=== PATIENT | male | born 1945 | race Caucasian/White ===

== ENCOUNTER 2024-04-06 17:42 | Inpatient (IN) | payer MEDICARE, MEDICAID ==
[~2024-04-06] VITALS: Ht 165.1 cm; Wt 55.3 kg
[~2024-04-06 17:42] MED LIST: OLME40TA18 MT
[2024-04-06] MEDS: ACETAMINOPHEN 1000MG/100ML 100 ML IV ONE (18:00)
[2024-04-06] MEDS: FAMOTIDINE 20MG/2ML VIAL IV ONE (18:31)
[2024-04-06] MEDS: ONDANSETRON HCL 4MG/2ML INJ IV STA (18:31)
[2024-04-06 18:42] LABS: BASOPHILS % 0.8 % (0.0-2.0); EOSINOPHILS % 1.6 % (0.0-5.0); HEMATOCRIT. 30.1 % (42.0-52.0); HEMOGLOBIN. 10.1 g/dL (14.0-18.0); LYMPHOCYTES % 8.8 % (20.0-50.0); MEAN CORPUSCULAR HEMOGLOBIN 33.5 pg (28.0-32.0); MEAN CORPUSCULAR HGB CONC 33.6 g/dL (31.0-37.0); MEAN CORPUSCULAR VOLUME 99.6 fL (80.0-94.0); MEAN PLATELET VOLUME 7.2 fl (7.4-10.4); NEUTROPHILS % 77.8 % (40.0-76.0); PLATELET 170 x1000/uL (130-400); RED BLOOD CELL COUNT 3.02 mill/uL (4.7-6.1); RED CELL DISTRIBUTION WIDTH 15.9 % (11.6-14.6); WHITE BLOOD COUNT 5.9 x1000/uL (4.5-11.0)
[2024-04-06 18:50] LABS: CHLORIDE 95 mEq/L (98-107); SODIUM 135 mEq/L (136-145)
[2024-04-06 18:51] LABS: CALCIUM 8.1 mg/dL (8.7-10.4); CARBON DIOXIDE 29 mEq/L (21-32)
[2024-04-06 18:56] LABS: GLUCOSE 119 mg/dL (70-105); PROTHROMBIN TIME 10.9 sec (9.6-11.0); UREA NITROGEN BLOOD 45 mg/dL (9-23)
[2024-04-06 18:58] LABS: ALANINE AMINOTRANSFERASE 15 IU/L (10-49); ALBUMIN 3.8 g/dL (3.2-4.8); ASPARTATE AMINOTRANSFERASE 26 IU/L (<34); BILIRUBIN DIRECT 0.1 mg/dL (<=3.0); BILIRUBIN TOTAL 0.3 mg/dL (0.1-1.0); PROTEIN TOTAL 6.8 g/dL (6.0-8.3); TROPONIN I HIGH SENSITIVITY 18 ng/L (3.0-53)
[2024-04-06 20:00] LABS: CREATININE 10.2 mg/dL (0.6-1.3)
[2024-04-06] MEDS ORDERED: IPRATROPIUM/ALBUTEROL 0.5-3(2.5)MG/3ML NEB HHN PRN (20:30)
[2024-04-06] MEDS ORDERED: SODIUM CHLORIDE 0.9% 1,000 ML IV SCH (20:30)
[2024-04-06] MEDS ORDERED: DOCUSATE SODIUM 100MG CAPSULE PO PRN (20:30)
[2024-04-06] MEDS ORDERED: GUAIFENESIN 200MG/10ML SUGAR FREE UDC PO PRN (20:30)
[2024-04-06] MEDS ORDERED: FAMOTIDINE 20MG TABLET PO SCH (21:00)
[2024-04-06] MEDS: MORPHINE SULFATE 4 MG/ML INJ (FOR IV/IM USE) IV NR (21:15)
[2024-04-06 21:48] LABS: FOLIC ACID (FOLATE) SERUM 9.88 ng/mL (>5.38); IRON 24 ug/dL (65-175); VITAMIN B12 SERUM 286 pg/mL (211-911)
[2024-04-06 21:51] LABS: TOTAL IRON BINDING CAPACITY 270 ug/dl (250-425)
[2024-04-07] VITALS (13 sets, daily range): BP systolic 101–143; BP diastolic 46–80; PULSE 68–108; RESP 14–20; TEMP 36.418–38.22528; O2SAT 94–100
[2024-04-07 01:57] LABS: CLARITY URINE CLEAR (CLEAR); COLOR URINE YELLOW (YELLOW); GLUCOSE URINE TRACE (NEGATIVE); KETONES URINE NEGATIVE (NEGATIVE); LEUKOCYTE ESTERASE URINE TRACE (NEGATIVE); NITRITE URINE NEGATIVE (NEGATIVE); OCCULT BLOOD URINE TRACE (NEGATIVE); PH URINE >=9.0 (4.5-8.0); PROTEIN URINE 2+ (NEGATIVE); SPECIFIC GRAVITY URINE 1.012 (1.005-1.030); UROBILINOGEN URINE 0.2 E.U./dL (0.2-1.0)
[2024-04-07] MEDS: ACETAMINOPHEN 325MG TABLET PO PRN ×2 (02:32→21:11)
[2024-04-07 02:39] LABS: *AMPHETAMINES SCREEN URINE NEGATIVE (NEGATIVE); *BARBITURATES SCREEN URINE NEGATIVE (NEGATIVE); *BENZODIAZEPINES SCREEN URINE NEGATIVE (NEGATIVE)
[2024-04-07 02:40] LABS: *COCAINE SCREEN URINE NEGATIVE (NEGATIVE); CANNABINOID URINE SCREEN NEGATIVE (NEGATIVE); ECSTASY MDMA SCREEN URINE NEGATIVE (NEGATIVE); METHADONE URINE SCREEN NEGATIVE (NEGATIVE); OPIATES URINE SCREEN NEGATIVE (NEGATIVE); PHENCYCLIDINE URINE SCREEN NEGATIVE (NEGATIVE)
[2024-04-07 03:25] LABS: SQUAMOUS EPITHELIAL CELL URINE FEW /lpf (RARE/1+)
[2024-04-07 03:26] LABS: BACTERIA URINE NONE SEEN
[2024-04-07 04:06] LABS: POTASSIUM 5.9 mEq/L (3.5-5.1)
[2024-04-07 04:08] LABS: CALCIUM 8.1 mg/dL (8.7-10.4)
[2024-04-07 04:14] LABS: CREATININE 10.4 mg/dL (0.6-1.3)
[2024-04-07] MEDS: PANTOPRAZOLE SODIUM 40 MG/VIAL IV SCH (08:44)
[2024-04-07 11:37] LABS: HEMATOCRIT. 30.9 % (42.0-52.0); HEMOGLOBIN. 10.2 g/dL (14.0-18.0); MEAN CORPUSCULAR HEMOGLOBIN 32.8 pg (28.0-32.0); MEAN CORPUSCULAR HGB CONC 33.1 g/dL (31.0-37.0); MEAN CORPUSCULAR VOLUME 99.2 fL (80.0-94.0); MEAN PLATELET VOLUME 7.1 fl (7.4-10.4); PLATELET 154 x1000/uL (130-400); RED BLOOD CELL COUNT 3.11 mill/uL (4.7-6.1); RED CELL DISTRIBUTION WIDTH 15.7 % (11.6-14.6); WHITE BLOOD COUNT 7.5 x1000/uL (4.5-11.0)
[2024-04-07 11:39] LABS: DIFFERENTIAL COMMENT 1
[2024-04-07 11:52] LABS: CALCIUM 8.2 mg/dL (8.7-10.4)
[2024-04-07 11:57] LABS: POTASSIUM 6.3 mEq/L (3.5-5.1)
[2024-04-07 11:59] LABS: ALBUMIN 3.7 g/dL (3.2-4.8)
[2024-04-07 12:00] LABS: CREATININE 11.1 mg/dL (0.6-1.3)
[2024-04-07 12:01] LABS: T4 FREE 0.88 ng/dL (0.89-1.76); THYROID STIMULATING HORMONE 0.27 uIU/mL (0.55-4.78)
[2024-04-07] MEDS: CYANOCOBALAMIN 1000MCG/ML VIAL IM SCH (15:23)
[2024-04-07] MEDS: BACLOFEN 10MG TABLET PO SCH (15:24)
[2024-04-07] MEDS: CEFTRIAXONE 1GM/50ML 50 ML IV SCH (17:29)
[2024-04-07] MEDS: ENOXAPARIN 30MG/0.3ML SYR SUBCUT SCH (17:30)
[2024-04-07 18:05] LABS: PLATELET ESTIMATE NORMAL
[2024-04-07] MEDS: METRONIDAZOLE 500 MG PREMIX 100 ML IV SCH (18:24)
[2024-04-07 18:35] LABS: POTASSIUM 4.9 mEq/L (3.5-5.1)
[2024-04-07 18:37] LABS: CALCIUM 7.9 mg/dL (8.7-10.4)
[2024-04-07 18:48] LABS: CREATININE 8.4 mg/dL (0.6-1.3)
[2024-04-08] VITALS (13 sets, daily range): BP systolic 90–177; BP diastolic 44–81; PULSE 72–87; RESP 16–19; TEMP 36.6696–37.39188; O2SAT 97–100
[2024-04-08] MEDS ORDERED: HYDROCODONE/ACETAMINOPHEN 5/325MG TABLET PO PRN (02:30)
[2024-04-08] MEDS: HYDROCODONE/ACETAMINOPHEN 5/325MG TABLET PO PRN ×2 (02:45→17:34)
[2024-04-08 07:44] LABS: HEMATOCRIT. 29.3 % (42.0-52.0); HEMOGLOBIN. 9.7 g/dL (14.0-18.0); MEAN CORPUSCULAR HEMOGLOBIN 32.7 pg (28.0-32.0); MEAN CORPUSCULAR HGB CONC 33.2 g/dL (31.0-37.0); MEAN CORPUSCULAR VOLUME 98.3 fL (80.0-94.0); MEAN PLATELET VOLUME 7.8 fl (7.4-10.4); PLATELET 129 x1000/uL (130-400); RED BLOOD CELL COUNT 2.98 mill/uL (4.7-6.1); RED CELL DISTRIBUTION WIDTH 15.9 % (11.6-14.6); WHITE BLOOD COUNT 8.4 x1000/uL (4.5-11.0)
[2024-04-08 07:47] LABS: CHLORIDE 93 mEq/L (98-107); POTASSIUM 5.2 mEq/L (3.5-5.1); SODIUM 130 mEq/L (136-145)
[2024-04-08 07:48] LABS: CARBON DIOXIDE 26 mEq/L (21-32)
[2024-04-08 07:49] LABS: CALCIUM 7.8 mg/dL (8.7-10.4)
[2024-04-08 07:50] LABS: DIFFERENTIAL COMMENT 1
[2024-04-08 07:53] LABS: GLUCOSE 82 mg/dL (70-105)
[2024-04-08 07:54] LABS: UREA NITROGEN BLOOD 47 mg/dL (9-23)
[2024-04-08 07:55] LABS: ALANINE AMINOTRANSFERASE 17 IU/L (10-49); ASPARTATE AMINOTRANSFERASE 66 IU/L (<34)
[2024-04-08 07:56] LABS: ALBUMIN 3.4 g/dL (3.2-4.8); BILIRUBIN TOTAL 0.5 mg/dL (0.1-1.0); PROTEIN TOTAL 6.2 g/dL (6.0-8.3)
[2024-04-08 08:04] LABS: CREATININE 9.8 mg/dL (0.6-1.3)
[2024-04-08] MEDS: METHADONE HCL 5MG TABLET PO PRN (09:55)
[2024-04-08 13:09] LABS: CALCIUM 8.2 mg/dL (8.7-10.4); POTASSIUM 4.3 mEq/L (3.5-5.1)
[2024-04-08 13:26] LABS: CREATININE 5.8 mg/dL (0.6-1.3)
[2024-04-08] MEDS ORDERED: NALOXONE HCL 0.4MG/ML VIAL IV PRN (17:15)
[2024-04-08 17:31] LABS: PLATELET ESTIMATE NORMAL
[2024-04-09] VITALS: BP 116/56; PULSE 74; RESP 18; TEMP 36.3918; O2SAT 97
[2024-04-09 06:26] LABS: POTASSIUM 4.8 mEq/L (3.5-5.1)
[2024-04-09 06:27] LABS: CALCIUM 8.5 mg/dL (8.7-10.4)
[2024-04-09 06:29] LABS: HEMATOCRIT 28.2 % (42.0-52.0); HEMOGLOBIN 9.1 g/dL (14.0-18.0); MEAN CORPUSCULAR HEMOGLOBIN 32.5 pg (28.0-32.0); MEAN CORPUSCULAR HGB CONC 32.4 g/dL (31.0-37.0); MEAN CORPUSCULAR VOLUME 100.4 fL (80.0-94.0); PLATELET 119 x1000/uL (130-400); RED BLOOD CELL COUNT 2.81 mill/uL (4.7-6.1); RED CELL DISTRIBUTION WIDTH 16.2 % (11.6-14.6); WHITE BLOOD COUNT 5.5 x1000/uL (4.5-11.0)
[2024-04-09 06:38] LABS: CREATININE 7.3 mg/dL (0.6-1.3)
[2024-04-09 08:00] VITALS: BP 167/75; PULSE 69; RESP 18; TEMP 36.16956; O2SAT 97
[2024-04-09] MEDS: CLONIDINE 0.1MG TABLET PO PRN (09:44)
[2024-04-09 12:00] VITALS: BP 105/53; PULSE 58; RESP 18; TEMP 36.33624; O2SAT 97
[2024-04-09] MEDS ORDERED: CEFEPIME 1GM IN DEXT 5% 50ML IV SCH (13:45)
[2024-04-09 16:00] VITALS: BP 142/61; PULSE 88; RESP 18; TEMP 36.50292; O2SAT 100
[2024-04-09] MEDS: CEFEPIME 1GM/50ML 50 ML IV SCH (17:08)
[2024-04-09] MEDS: AMLODIPINE 10MG TABLET PO SCH (17:09)
[2024-04-09] MEDS: SODIUM CHLORIDE 0.45% 1,000 ML IV SCH (17:25)
[2024-04-09] MEDS: METRONIDAZOLE 500MG TABLET PO SCH (18:00)
[2024-04-09 20:00] VITALS: BP 106/64; PULSE 63; RESP 18; TEMP 36.00288; O2SAT 100
[2024-04-09 22:16] LABS: HEMATOCRIT. 30.8 % (42.0-52.0); HEMOGLOBIN. 10.2 g/dL (14.0-18.0); MEAN CORPUSCULAR HEMOGLOBIN 32.9 pg (28.0-32.0); MEAN CORPUSCULAR VOLUME 99.6 fL (80.0-94.0); MEAN PLATELET VOLUME 8.4 fl (7.4-10.4); PLATELET 131 x1000/uL (130-400); RED BLOOD CELL COUNT 3.09 mill/uL (4.7-6.1); RED CELL DISTRIBUTION WIDTH 16.2 % (11.6-14.6); WHITE BLOOD COUNT 5.4 x1000/uL (4.5-11.0)
[2024-04-09 22:18] LABS: DIFFERENTIAL COMMENT 1
[2024-04-09 22:24] LABS: POTASSIUM 4.8 mEq/L (3.5-5.1)
[2024-04-09 22:25] LABS: CALCIUM 8.6 mg/dL (8.7-10.4)
[2024-04-09 22:32] LABS: AMMONIA < 17 uMol/L (<32)
[2024-04-09 22:37] LABS: PLATELET ESTIMATE NORMAL
[2024-04-09 22:41] LABS: CREATININE 8.8 mg/dL (0.6-1.3)
[2024-04-10] VITALS (14 sets, daily range): BP systolic 135–190; BP diastolic 71–96; PULSE 63–105; RESP 16–19; TEMP 36.114–36.78072; O2SAT 97–100
[2024-04-10] MEDS: DEXT 5%/0.45% NACL 1000ML 1,000 ML IV SCH ×2 (02:34→08:59)
[2024-04-10 07:41] LABS: CARBON DIOXIDE 23 mEq/L (21-32); CHLORIDE 106 mEq/L (98-107); POTASSIUM 5.2 mEq/L (3.5-5.1); SODIUM 141 mEq/L (136-145)
[2024-04-10 07:42] LABS: CALCIUM 8.9 mg/dL (8.7-10.4)
[2024-04-10 07:47] LABS: ALANINE AMINOTRANSFERASE 15 IU/L (10-49); ASPARTATE AMINOTRANSFERASE 53 IU/L (<34); GLUCOSE 75 mg/dL (70-105); HEMOGLOBIN 10.7 g/dL (14.0-18.0); MEAN CORPUSCULAR HEMOGLOBIN 32.8 pg (28.0-32.0); MEAN CORPUSCULAR HGB CONC 32.3 g/dL (31.0-37.0); MEAN CORPUSCULAR VOLUME 101.4 fL (80.0-94.0); PLATELET 140 x1000/uL (130-400); RED BLOOD CELL COUNT 3.26 mill/uL (4.7-6.1); RED CELL DISTRIBUTION WIDTH 16.5 % (11.6-14.6); UREA NITROGEN BLOOD 56 mg/dL (9-23); WHITE BLOOD COUNT 6.5 x1000/uL (4.5-11.0)
[2024-04-10 07:49] LABS: ALBUMIN 3.5 g/dL (3.2-4.8); BILIRUBIN DIRECT 0.2 mg/dL (<=3.0); BILIRUBIN TOTAL 0.3 mg/dL (0.1-1.0); PHOSPHORUS 6.4 mg/dL (2.5-4.9); PROTEIN TOTAL 6.7 g/dL (6.0-8.3)
[2024-04-10] MEDS: METRONIDAZOLE 500 MG PREMIX 100 ML IV SCH ×2 (09:58→17:32)
[2024-04-10] MEDS ORDERED: EPOETIN ALFA-EPBX 4,000 UNIT/ML VIAL SUBCUT SCH (21:00)
[2024-04-11 08:00] VITALS: BP 197/79; PULSE 85; RESP 20; TEMP 36.05844; O2SAT 98
[2024-04-11 09:00] VITALS: BP 167/89; PULSE 80
[2024-04-11] MEDS: FOLIC ACID/VITAMIN B COMP W-C TABLET NG SCH (09:00)
[2024-04-11 12:00] VITALS: BP 191/61; PULSE 77; RESP 19; TEMP 36.00288; O2SAT 97
[2024-04-11 13:14] VITALS: BP 157/68; PULSE 83; RESP 20; TEMP 36.61404; O2SAT 95
[2024-04-11 16:00] VITALS: BP 145/52; RESP 18; TEMP 35.89176; O2SAT 97
[2024-04-11 17:00] LABS: HEMATOCRIT 28.1 % (42.0-52.0); HEMOGLOBIN 9.1 g/dL (14.0-18.0); MEAN CORPUSCULAR HEMOGLOBIN 32.7 pg (28.0-32.0); MEAN CORPUSCULAR HGB CONC 32.2 g/dL (31.0-37.0); MEAN CORPUSCULAR VOLUME 101.3 fL (80.0-94.0); PLATELET 153 x1000/uL (130-400); RED BLOOD CELL COUNT 2.78 mill/uL (4.7-6.1); RED CELL DISTRIBUTION WIDTH 16.4 % (11.6-14.6); WHITE BLOOD COUNT 6.4 x1000/uL (4.5-11.0)
[2024-04-11 17:14] LABS: POTASSIUM 4.4 mEq/L (3.5-5.1)
[2024-04-11 17:15] LABS: CALCIUM 8.3 mg/dL (8.7-10.4)
[2024-04-11 17:21] LABS: CREATININE 8.8 mg/dL (0.6-1.3)
[2024-04-11] MEDS ORDERED: HYDROXYZINE 10MG TABLET PO PRN (18:45)
[2024-04-11 21:38] VITALS: BP 136/78; PULSE 72; RESP 20; TEMP 37.05852; O2SAT 90
[2024-04-12 00:44] VITALS: BP 136/70; PULSE 78; RESP 20; TEMP 37.05852; O2SAT 98
[2024-04-12 06:29] VITALS: BP 136/92; PULSE 70; RESP 18; TEMP 37.00296; O2SAT 94
[2024-04-12 08:00] VITALS: BP 147/71; PULSE 81; RESP 18; TEMP 36.33624; O2SAT 96
[2024-04-12 11:20] LABS: POTASSIUM 4.5 mEq/L (3.5-5.1)
[2024-04-12 11:21] LABS: CALCIUM 8.6 mg/dL (8.7-10.4)
[2024-04-12 11:27] LABS: AMMONIA 17 uMol/L (<32)
[2024-04-12 11:28] LABS: HEMATOCRIT 27.6 % (42.0-52.0); HEMOGLOBIN 9.1 g/dL (14.0-18.0); MEAN CORPUSCULAR HEMOGLOBIN 32.7 pg (28.0-32.0); MEAN CORPUSCULAR HGB CONC 32.9 g/dL (31.0-37.0); MEAN CORPUSCULAR VOLUME 99.1 fL (80.0-94.0); PLATELET 169 x1000/uL (130-400); RED BLOOD CELL COUNT 2.78 mill/uL (4.7-6.1); RED CELL DISTRIBUTION WIDTH 16.3 % (11.6-14.6); WHITE BLOOD COUNT 7.4 x1000/uL (4.5-11.0)
[2024-04-12 12:00] VITALS: BP 125/68; PULSE 79; RESP 18; TEMP 36.89184; O2SAT 95
[2024-04-12 12:01] LABS: CREATININE 10.1 mg/dL (0.6-1.3)
[2024-04-12 16:00] VITALS: BP 119/59; PULSE 68; RESP 18; TEMP 36.55848; O2SAT 97
[2024-04-12] MEDS: LORAZEPAM 2MG/ML INJ IV NR (16:48)
[2024-04-12 20:00] VITALS: BP 144/78; PULSE 75; RESP 20; TEMP 36.22512; O2SAT 100
[2024-04-13] VITALS (9 sets, daily range): BP systolic 97–163; BP diastolic 48–87; PULSE 61–97; RESP 16–20; TEMP 36.3918–37.11408; O2SAT 95–100
[2024-04-13] MEDS ORDERED: EPOETIN ALFA 10000UNITS/ML VIAL SUBCUT ONE (07:15)
[2024-04-13] MEDS: ONDANSETRON HCL 4MG/2ML INJ IV PRN (12:48)
[2024-04-13 13:48] LABS: CHLORIDE 108 mEq/L (98-107); SODIUM 144 mEq/L (136-145)
[2024-04-13 13:49] LABS: CALCIUM 8.4 mg/dL (8.7-10.4); CARBON DIOXIDE 25 mEq/L (21-32)
[2024-04-13 13:54] LABS: GLUCOSE 126 mg/dL (70-105); UREA NITROGEN BLOOD 51 mg/dL (9-23)
[2024-04-13 13:55] LABS: INR 1.2
[2024-04-13 13:56] LABS: ALANINE AMINOTRANSFERASE 13 IU/L (10-49); ALBUMIN 3.5 g/dL (3.2-4.8); AMMONIA 17 uMol/L (<32); ASPARTATE AMINOTRANSFERASE 27 IU/L (<34); BILIRUBIN TOTAL 0.6 mg/dL (0.1-1.0); PROTEIN TOTAL 6.6 g/dL (6.0-8.3)
[2024-04-13 14:02] LABS: HEMATOCRIT. 27.1 % (42.0-52.0); HEMOGLOBIN. 8.9 g/dL (14.0-18.0); MEAN CORPUSCULAR HEMOGLOBIN 32.3 pg (28.0-32.0); MEAN CORPUSCULAR HGB CONC 32.8 g/dL (31.0-37.0); MEAN CORPUSCULAR VOLUME 98.5 fL (80.0-94.0); MEAN PLATELET VOLUME 8.4 fl (7.4-10.4); PLATELET 171 x1000/uL (130-400); RED BLOOD CELL COUNT 2.75 mill/uL (4.7-6.1); RED CELL DISTRIBUTION WIDTH 16.7 % (11.6-14.6); WHITE BLOOD COUNT 9.5 x1000/uL (4.5-11.0)
[2024-04-13 14:04] LABS: DIFFERENTIAL COMMENT 1
[2024-04-13] MEDS: QUETIAPINE FUMARATE 25MG TABLET PO SCH (14:34)
[2024-04-13 14:39] LABS: CREATININE 8.9 mg/dL (0.6-1.3)
[2024-04-13 14:56] LABS: ANISOCYTOSIS 1+; PLATELET ESTIMATE NORMAL
[2024-04-13] MEDS: EPOETIN ALFA-EPBX 4,000 UNIT/ML VIAL SUBCUT SCH (22:18)
[2024-04-14 08:00] VITALS: BP 151/67; PULSE 96; RESP 18; TEMP 35.5584; O2SAT 98
[2024-04-14 08:55] LABS: HEMOGLOBIN. 9.3 g/dL (14.0-18.0); MEAN CORPUSCULAR HEMOGLOBIN 31.5 pg (28.0-32.0); MEAN CORPUSCULAR VOLUME 98.4 fL (80.0-94.0); MEAN PLATELET VOLUME 8.7 fl (7.4-10.4); PLATELET 172 x1000/uL (130-400); RED BLOOD CELL COUNT 2.94 mill/uL (4.7-6.1); RED CELL DISTRIBUTION WIDTH 16.6 % (11.6-14.6); WHITE BLOOD COUNT 8.4 x1000/uL (4.5-11.0)
[2024-04-14 09:01] LABS: DIFFERENTIAL COMMENT 1
[2024-04-14 09:04] LABS: CHLORIDE 109 mEq/L (98-107); POTASSIUM 3.8 mEq/L (3.5-5.1); SODIUM 144 mEq/L (136-145)
[2024-04-14 09:05] LABS: CARBON DIOXIDE 24 mEq/L (21-32)
[2024-04-14 09:06] LABS: CALCIUM 8.7 mg/dL (8.7-10.4); INR 1.3
[2024-04-14 09:10] LABS: GLUCOSE 142 mg/dL (70-105); UREA NITROGEN BLOOD 61 mg/dL (9-23)
[2024-04-14 09:12] LABS: ALANINE AMINOTRANSFERASE 10 IU/L (10-49); ALBUMIN 3.3 g/dL (3.2-4.8); ASPARTATE AMINOTRANSFERASE 22 IU/L (<34)
[2024-04-14 09:13] LABS: BILIRUBIN TOTAL 0.4 mg/dL (0.1-1.0); PROTEIN TOTAL 6.5 g/dL (6.0-8.3)
[2024-04-14 09:17] LABS: CREATININE 10.2 mg/dL (0.6-1.3)
[2024-04-14 09:50] LABS: FOLIC ACID (FOLATE) SERUM 7.25 ng/mL (>5.38)
[2024-04-14 10:06] LABS: VITAMIN B12 SERUM > 2000 pg/mL (211-911)
[2024-04-14 10:32] LABS: AMMONIA 22 uMol/L (<32)
[2024-04-14 12:00] VITALS: BP 150/74; PULSE 98; RESP 18; TEMP 36.114; O2SAT 98
[2024-04-14 16:00] VITALS: BP_SYST 108; BP_SYST 143; BP_DIAS 64; PULSE 98; RESP 18; TEMP 36.16956; TEMP 36.44736; O2SAT 99
[2024-04-14] MEDS: MORPHINE SULFATE 2 MG/ML INJ (NOT FOR IM USE) IV PRN (17:49)
[2024-04-14 20:00] VITALS: BP 154/78; PULSE 97; RESP 20; TEMP 37.11408; O2SAT 97
[2024-04-15] VITALS: BP 140/87; PULSE 98; RESP 18; TEMP 36.22512; O2SAT 97
[2024-04-15 01:29] LABS: ANISOCYTOSIS 1+; PLATELET ESTIMATE NORMAL
[2024-04-15 04:00] VITALS: BP 144/82; PULSE 75; RESP 19; TEMP 36.22512; O2SAT 98
[2024-04-15 06:40] LABS: HEMOGLOBIN. 8.9 g/dL (14.0-18.0); MEAN CORPUSCULAR HEMOGLOBIN 31.6 pg (28.0-32.0); MEAN CORPUSCULAR VOLUME 98.8 fL (80.0-94.0); MEAN PLATELET VOLUME 8.9 fl (7.4-10.4); PLATELET 172 x1000/uL (130-400); RED BLOOD CELL COUNT 2.83 mill/uL (4.7-6.1); RED CELL DISTRIBUTION WIDTH 16.8 % (11.6-14.6); WHITE BLOOD COUNT 9.5 x1000/uL (4.5-11.0)
[2024-04-15 06:49] LABS: CARBON DIOXIDE 23 mEq/L (21-32); CHLORIDE 108 mEq/L (98-107); POTASSIUM 3.8 mEq/L (3.5-5.1); SODIUM 144 mEq/L (136-145)
[2024-04-15 06:50] LABS: CALCIUM 8.4 mg/dL (8.7-10.4)
[2024-04-15 06:55] LABS: GLUCOSE 110 mg/dL (70-105); UREA NITROGEN BLOOD 65 mg/dL (9-23)
[2024-04-15 06:56] LABS: ALANINE AMINOTRANSFERASE 8 IU/L (10-49); ALBUMIN 3.2 g/dL (3.2-4.8)
[2024-04-15 06:57] LABS: ASPARTATE AMINOTRANSFERASE 20 IU/L (<34); BILIRUBIN TOTAL 0.4 mg/dL (0.1-1.0); PROTEIN TOTAL 6.2 g/dL (6.0-8.3)
[2024-04-15 07:01] LABS: CREATININE 11.7 mg/dL (0.6-1.3)
[2024-04-15 07:04] LABS: DIFFERENTIAL COMMENT 1
[2024-04-15 08:00] VITALS: BP 165/79; PULSE 113; RESP 20; TEMP 37.33632; O2SAT 98
[2024-04-15] MEDS: HYDRALAZINE HCL 10MG TABLET PO SCH (09:16)
[2024-04-15 12:00] VITALS: BP 129/58; PULSE 72; RESP 18; TEMP 37.00296; O2SAT 96
[2024-04-15] MEDS: METOCLOPRAMIDE HCL 10MG/2ML VIAL IV SCH (12:00)
[2024-04-15] MEDS: LEVOTHYROXINE SODIUM 25MCG TABLET PO SCH (15:45)
[2024-04-15 16:00] VITALS: BP 142/69; PULSE 97; RESP 20; TEMP 37.00296; O2SAT 95
[2024-04-15 18:26] LABS: PLATELET ESTIMATE NORMAL
[2024-04-15 20:00] VITALS: BP 147/74; PULSE 94; RESP 19; TEMP 36.78072; O2SAT 95
[2024-04-15] MEDS: EPOETIN ALFA-EPBX 4,000 UNIT/ML VIAL SUBCUT SCH (21:00)
[2024-04-15] MEDS: METRONIDAZOLE 500 MG PREMIX 100 ML IV SCH (22:00)
[2024-04-15] MEDS: LORAZEPAM 2MG/ML INJ IV NR (22:53)
[2024-04-16] VITALS (15 sets, daily range): BP systolic 70–159; BP diastolic 35–74; PULSE 65–101; RESP 17–22; TEMP 35.78064–36.72516; O2SAT 98–100
[2024-04-16 06:53] LABS: CHLORIDE 108 mEq/L (98-107); POTASSIUM 4.4 mEq/L (3.5-5.1); SODIUM 143 mEq/L (136-145)
[2024-04-16 06:56] LABS: CARBON DIOXIDE 23 mEq/L (21-32)
[2024-04-16 07:01] LABS: GLUCOSE 117 mg/dL (70-105); UREA NITROGEN BLOOD 84 mg/dL (9-23)
[2024-04-16 07:02] LABS: ALANINE AMINOTRANSFERASE 8 IU/L (10-49)
[2024-04-16 07:03] LABS: ALBUMIN 3.4 g/dL (3.2-4.8); AMMONIA < 17 uMol/L (<32); ASPARTATE AMINOTRANSFERASE 21 IU/L (<34); BILIRUBIN DIRECT 0.2 mg/dL (<=3.0); THYROID STIMULATING HORMONE 0.77 uIU/mL (0.55-4.78)
[2024-04-16 07:04] LABS: BASOPHILS % 0.5 % (0.0-2.0); BILIRUBIN TOTAL 0.4 mg/dL (0.1-1.0); EOSINOPHILS % 1.8 % (0.0-5.0); HEMATOCRIT. 28.7 % (42.0-52.0); HEMOGLOBIN. 9.4 g/dL (14.0-18.0); MEAN CORPUSCULAR HEMOGLOBIN 32.3 pg (28.0-32.0); MEAN CORPUSCULAR HGB CONC 32.7 g/dL (31.0-37.0); MEAN CORPUSCULAR VOLUME 98.7 fL (80.0-94.0); MEAN PLATELET VOLUME 8.8 fl (7.4-10.4); MONOCYTES % 8.9 % (2.0-8.0); NEUTROPHILS % 78.8 % (40.0-76.0); PLATELET 178 x1000/uL (130-400); PROTEIN TOTAL 6.7 g/dL (6.0-8.3); RED BLOOD CELL COUNT 2.91 mill/uL (4.7-6.1); WHITE BLOOD COUNT 9.7 x1000/uL (4.5-11.0)
[2024-04-16 07:12] LABS: CREATININE 12.6 mg/dL (0.6-1.3)
[2024-04-16] MEDS ORDERED: CEFEPIME 1GM IN DEXT 5% 50ML IV SCH (17:00)
[2024-04-16] MEDS: CEFEPIME 1GM/50ML 50 ML IV SCH (17:01)
[2024-04-17] VITALS: BP 135/55; PULSE 99; RESP 20; TEMP 36.78072; O2SAT 96
[2024-04-17 04:00] VITALS: BP 140/59; PULSE 104; RESP 22; TEMP 36.6696; O2SAT 98
[2024-04-17 06:11] LABS: HEMATOCRIT. 28.8 % (42.0-52.0); HEMOGLOBIN. 9.4 g/dL (14.0-18.0); MEAN CORPUSCULAR HEMOGLOBIN 31.9 pg (28.0-32.0); MEAN CORPUSCULAR HGB CONC 32.7 g/dL (31.0-37.0); MEAN CORPUSCULAR VOLUME 97.7 fL (80.0-94.0); MEAN PLATELET VOLUME 8.9 fl (7.4-10.4); PLATELET 192 x1000/uL (130-400); RED BLOOD CELL COUNT 2.95 mill/uL (4.7-6.1); RED CELL DISTRIBUTION WIDTH 16.5 % (11.6-14.6); WHITE BLOOD COUNT 11.4 x1000/uL (4.5-11.0)
[2024-04-17 06:37] LABS: CHLORIDE 99 mEq/L (98-107); POTASSIUM 3.8 mEq/L (3.5-5.1); SODIUM 136 mEq/L (136-145)
[2024-04-17 06:38] LABS: CALCIUM 8.4 mg/dL (8.7-10.4); CARBON DIOXIDE 29 mEq/L (21-32)
[2024-04-17 06:43] LABS: GLUCOSE 111 mg/dL (70-105); UREA NITROGEN BLOOD 43 mg/dL (9-23)
[2024-04-17 06:44] LABS: ALANINE AMINOTRANSFERASE 11 IU/L (10-49); ALBUMIN 3.3 g/dL (3.2-4.8); ASPARTATE AMINOTRANSFERASE 29 IU/L (<34)
[2024-04-17 06:45] LABS: BILIRUBIN TOTAL 0.5 mg/dL (0.1-1.0); CREATININE 8.2 mg/dL (0.6-1.3)
[2024-04-17 06:46] LABS: PROTEIN TOTAL 6.6 g/dL (6.0-8.3)
[2024-04-17 08:00] VITALS: BP 110/71; PULSE 103; RESP 20; TEMP 36.55848; O2SAT 95
[2024-04-17 12:00] VITALS: BP 144/64; PULSE 106; RESP 20; TEMP 36.78072; O2SAT 95
[2024-04-17 16:00] VITALS: BP 139/73; PULSE 111; RESP 20; TEMP 36.72516; O2SAT 95
[2024-04-17 17:49] LABS: ANISOCYTOSIS 1+; PLATELET ESTIMATE NORMAL
[2024-04-17 20:00] VITALS: BP 95/56; PULSE 100; RESP 19; TEMP 36.6696; O2SAT 97
[2024-04-18] VITALS: BP 136/54; PULSE 86; RESP 19; TEMP 36.22512; O2SAT 98
[2024-04-18 04:00] VITALS: BP 147/60; PULSE 79; RESP 20; TEMP 36.50292; O2SAT 98
[2024-04-18 08:00] VITALS: BP 118/65; PULSE 72; RESP 18; TEMP 36.3918; O2SAT 100
[2024-04-18 08:08] LABS: POTASSIUM 3.6 mEq/L (3.5-5.1)
[2024-04-18 08:09] LABS: CALCIUM 8.5 mg/dL (8.7-10.4)
[2024-04-18 08:15] LABS: CREATININE 9.4 mg/dL (0.6-1.3)
[2024-04-18 08:17] LABS: BASOPHILS % 0.4 % (0.0-2.0); EOSINOPHILS % 1.8 % (0.0-5.0); HEMATOCRIT. 24.1 % (42.0-52.0); HEMOGLOBIN. 8.1 g/dL (14.0-18.0); LYMPHOCYTES % 7.3 % (20.0-50.0); MEAN CORPUSCULAR HEMOGLOBIN 32.7 pg (28.0-32.0); MEAN CORPUSCULAR HGB CONC 33.7 g/dL (31.0-37.0); MEAN CORPUSCULAR VOLUME 96.9 fL (80.0-94.0); MEAN PLATELET VOLUME 9.1 fl (7.4-10.4); MONOCYTES % 10.2 % (2.0-8.0); NEUTROPHILS % 80.3 % (40.0-76.0); PLATELET 151 x1000/uL (130-400); RED BLOOD CELL COUNT 2.49 mill/uL (4.7-6.1); RED CELL DISTRIBUTION WIDTH 16.4 % (11.6-14.6); WHITE BLOOD COUNT 9.1 x1000/uL (4.5-11.0)
[2024-04-18 12:00] VITALS: BP 110/57; PULSE 80; RESP 17; TEMP 36.72516; O2SAT 98
[2024-04-18 16:00] VITALS: BP 116/59; PULSE 86; RESP 17; TEMP 36.72516; O2SAT 98
[2024-04-18 20:00] VITALS: BP 135/67; PULSE 91; RESP 18; TEMP 37.00296; O2SAT 98
[2024-04-19] VITALS: BP 126/55; PULSE 79; RESP 18; TEMP 36.72516; O2SAT 97
[2024-04-19 04:00] VITALS: BP 118/58; PULSE 72; RESP 19; TEMP 36.22512
[2024-04-19 06:26] LABS: BASOPHILS % 0.7 % (0.0-2.0); EOSINOPHILS % 2.4 % (0.0-5.0); HEMATOCRIT. 24.8 % (42.0-52.0); HEMOGLOBIN. 8.3 g/dL (14.0-18.0); LYMPHOCYTES % 7.4 % (20.0-50.0); MEAN CORPUSCULAR HEMOGLOBIN 32.5 pg (28.0-32.0); MEAN CORPUSCULAR HGB CONC 33.6 g/dL (31.0-37.0); MEAN CORPUSCULAR VOLUME 96.9 fL (80.0-94.0); MEAN PLATELET VOLUME 8.7 fl (7.4-10.4); MONOCYTES % 9.8 % (2.0-8.0); NEUTROPHILS % 79.7 % (40.0-76.0); PLATELET 184 x1000/uL (130-400); RED BLOOD CELL COUNT 2.56 mill/uL (4.7-6.1); RED CELL DISTRIBUTION WIDTH 16.4 % (11.6-14.6); WHITE BLOOD COUNT 7.6 x1000/uL (4.5-11.0)
[2024-04-19 06:41] LABS: POTASSIUM 3.6 mEq/L (3.5-5.1)
[2024-04-19 06:43] LABS: CALCIUM 8.6 mg/dL (8.7-10.4)
[2024-04-19 07:09] LABS: CREATININE 10.7 mg/dL (0.6-1.3)
[2024-04-19 08:00] VITALS: BP 121/64; PULSE 80; RESP 18; TEMP 36.22512; O2SAT 98
[2024-04-19 12:00] VITALS: BP 128/57; PULSE 81; RESP 20; TEMP 36.114; O2SAT 96
[2024-04-19 16:00] VITALS: BP 134/62; PULSE 84; RESP 20; TEMP 36.61404; O2SAT 96
[2024-04-19] MEDS: PIPERACILLIN/TAZO 3.375G/50ML 50 ML IV SCH (18:10)
[2024-04-19 20:00] VITALS: BP 124/59; PULSE 84; RESP 18; TEMP 36.89184; O2SAT 99
[2024-04-19] MEDS: VANCOMYCIN 1250MG in DEXTROSE 5% WATER 250ML IV NR (22:22)
[2024-04-20] VITALS (14 sets, daily range): BP systolic 107–138; BP diastolic 55–70; PULSE 79–88; RESP 15–20; TEMP 36.05844–37.00296; O2SAT 96–100
[2024-04-20 06:15] LABS: HEMATOCRIT. 25.3 % (42.0-52.0); HEMOGLOBIN. 8.3 g/dL (14.0-18.0); MEAN CORPUSCULAR HEMOGLOBIN 32.2 pg (28.0-32.0); MEAN CORPUSCULAR VOLUME 97.3 fL (80.0-94.0); MEAN PLATELET VOLUME 8.6 fl (7.4-10.4); PLATELET 227 x1000/uL (130-400); RED CELL DISTRIBUTION WIDTH 16.5 % (11.6-14.6); WHITE BLOOD COUNT 8.7 x1000/uL (4.5-11.0)
[2024-04-20 06:21] LABS: CALCIUM 8.2 mg/dL (8.7-10.4); POTASSIUM 3.7 mEq/L (3.5-5.1)
[2024-04-20 06:36] LABS: DIFFERENTIAL COMMENT 1
[2024-04-20 06:45] LABS: CREATININE 11.5 mg/dL (0.6-1.3)
[2024-04-20] MEDS ORDERED: PARICALCITOL 5 MCG/ML 1ML IV SCH (10:00)
[2024-04-20 15:35] LABS: ANISOCYTOSIS 1+; PLATELET ESTIMATE NORMAL
[2024-04-21] VITALS: BP 120/69; PULSE 90; RESP 18; TEMP 36.72516; O2SAT 99
[2024-04-21 04:00] VITALS: BP 120/73; PULSE 75; RESP 18; TEMP 36.3918; O2SAT 100
[2024-04-21 07:41] LABS: BASOPHILS % 0.7 % (0.0-2.0); EOSINOPHILS % 2.4 % (0.0-5.0); HEMATOCRIT. 26.8 % (42.0-52.0); HEMOGLOBIN. 8.6 g/dL (14.0-18.0); LYMPHOCYTES % 7.6 % (20.0-50.0); MEAN CORPUSCULAR HEMOGLOBIN 31.4 pg (28.0-32.0); MEAN CORPUSCULAR VOLUME 98.1 fL (80.0-94.0); MEAN PLATELET VOLUME 8.3 fl (7.4-10.4); MONOCYTES % 10.7 % (2.0-8.0); NEUTROPHILS % 78.6 % (40.0-76.0); PLATELET 283 x1000/uL (130-400); RED BLOOD CELL COUNT 2.74 mill/uL (4.7-6.1); RED CELL DISTRIBUTION WIDTH 16.4 % (11.6-14.6); WHITE BLOOD COUNT 7.4 x1000/uL (4.5-11.0)
[2024-04-21 07:44] LABS: CHLORIDE 103 mEq/L (98-107); POTASSIUM 3.9 mEq/L (3.5-5.1); SODIUM 140 mEq/L (136-145)
[2024-04-21 07:47] LABS: CALCIUM 8.7 mg/dL (8.7-10.4); CARBON DIOXIDE 24 mEq/L (21-32)
[2024-04-21 07:53] LABS: GLUCOSE 84 mg/dL (70-105); UREA NITROGEN BLOOD 53 mg/dL (9-23)
[2024-04-21 07:54] LABS: ALANINE AMINOTRANSFERASE 11 IU/L (10-49); ALBUMIN 3.2 g/dL (3.2-4.8); ASPARTATE AMINOTRANSFERASE 29 IU/L (<34)
[2024-04-21 07:55] LABS: BILIRUBIN DIRECT 0.3 mg/dL (<=3.0); BILIRUBIN TOTAL 0.5 mg/dL (0.1-1.0); CREATININE 8.8 mg/dL (0.6-1.3); PROTEIN TOTAL 6.6 g/dL (6.0-8.3)
[2024-04-21 08:00] VITALS: BP 125/68; PULSE 83; RESP 18; TEMP 36.16956; O2SAT 100
[2024-04-21] MEDS ORDERED: PARICALCITOL 1 MCG CAPSULE PO SCH (09:00)
[2024-04-21 12:00] VITALS: BP 134/70; PULSE 71; RESP 18; TEMP 36.50292; O2SAT 100
[2024-04-21 17:00] VITALS: BP 107/51; PULSE 83; RESP 18; TEMP 36.50292; O2SAT 100
[2024-04-21 20:00] VITALS: BP 123/63; PULSE 87; RESP 20; TEMP 36.3918; O2SAT 100
[2024-04-22] VITALS (14 sets, daily range): BP systolic 106–133; BP diastolic 57–96; PULSE 78–91; RESP 18–19; TEMP 36.114–36.6696; O2SAT 97–100
[2024-04-22 06:44] LABS: CHLORIDE 102 mEq/L (98-107); POTASSIUM 4.1 mEq/L (3.5-5.1); SODIUM 137 mEq/L (136-145)
[2024-04-22 06:45] LABS: CALCIUM 8.5 mg/dL (8.7-10.4); CARBON DIOXIDE 20 mEq/L (21-32)
[2024-04-22 06:50] LABS: GLUCOSE 83 mg/dL (70-105); UREA NITROGEN BLOOD 55 mg/dL (9-23)
[2024-04-22 06:52] LABS: ALANINE AMINOTRANSFERASE 10 IU/L (10-49); ALBUMIN 3.1 g/dL (3.2-4.8); ASPARTATE AMINOTRANSFERASE 28 IU/L (<34); BILIRUBIN TOTAL 0.5 mg/dL (0.1-1.0); PROTEIN TOTAL 6.4 g/dL (6.0-8.3)
[2024-04-22 07:23] LABS: BASOPHILS % 0.9 % (0.0-2.0); EOSINOPHILS % 2.5 % (0.0-5.0); HEMATOCRIT. 27.2 % (42.0-52.0); HEMOGLOBIN. 8.9 g/dL (14.0-18.0); MEAN CORPUSCULAR HGB CONC 32.6 g/dL (31.0-37.0); MEAN CORPUSCULAR VOLUME 98.1 fL (80.0-94.0); MEAN PLATELET VOLUME 8.5 fl (7.4-10.4); NEUTROPHILS % 73.6 % (40.0-76.0); PLATELET 306 x1000/uL (130-400); RED BLOOD CELL COUNT 2.77 mill/uL (4.7-6.1); RED CELL DISTRIBUTION WIDTH 16.6 % (11.6-14.6); WHITE BLOOD COUNT 6.6 x1000/uL (4.5-11.0)
[2024-04-22 07:26] LABS: CREATININE 11.2 mg/dL (0.6-1.3)
[2024-04-23] VITALS (7 sets, daily range): BP systolic 120–143; BP diastolic 49–71; PULSE 84–91; RESP 18–20; TEMP 36.114–37.11408; O2SAT 96–98
[2024-04-23 06:50] LABS: CHLORIDE 101 mEq/L (98-107); POTASSIUM 3.9 mEq/L (3.5-5.1); SODIUM 137 mEq/L (136-145)
[2024-04-23 06:51] LABS: CALCIUM 8.6 mg/dL (8.7-10.4); CARBON DIOXIDE 24 mEq/L (21-32)
[2024-04-23 06:56] LABS: GLUCOSE 78 mg/dL (70-105); UREA NITROGEN BLOOD 39 mg/dL (9-23)
[2024-04-23 06:57] LABS: INR 1.2; PROTHROMBIN TIME 12.7 sec (9.6-11.0)
[2024-04-23 06:58] LABS: ALANINE AMINOTRANSFERASE 10 IU/L (10-49); ASPARTATE AMINOTRANSFERASE 27 IU/L (<34); BILIRUBIN TOTAL 0.6 mg/dL (0.1-1.0); PROTEIN TOTAL 6.3 g/dL (6.0-8.3)
[2024-04-23 07:14] LABS: BASOPHILS % 0.9 % (0.0-2.0); EOSINOPHILS % 3.6 % (0.0-5.0); HEMATOCRIT. 28.8 % (42.0-52.0); HEMOGLOBIN. 9.4 g/dL (14.0-18.0); LYMPHOCYTES % 11.2 % (20.0-50.0); MEAN CORPUSCULAR HEMOGLOBIN 32.2 pg (28.0-32.0); MEAN CORPUSCULAR HGB CONC 32.7 g/dL (31.0-37.0); MEAN CORPUSCULAR VOLUME 98.4 fL (80.0-94.0); MEAN PLATELET VOLUME 8.3 fl (7.4-10.4); MONOCYTES % 11.2 % (2.0-8.0); NEUTROPHILS % 73.1 % (40.0-76.0); PLATELET 312 x1000/uL (130-400); RED BLOOD CELL COUNT 2.92 mill/uL (4.7-6.1); RED CELL DISTRIBUTION WIDTH 16.9 % (11.6-14.6); WHITE BLOOD COUNT 5.9 x1000/uL (4.5-11.0)
[2024-04-23 07:25] LABS: CREATININE 9.3 mg/dL (0.6-1.3)
[2024-04-23] MEDS: SEVELAMER CARBONATE 800 MG TABLET PO SCH (15:33)
[2024-04-23] MEDS ORDERED: NALOXONE HCL 0.4MG/ML VIAL IV PRN (17:00)
[2024-04-23] MEDS ORDERED: AMLO10TA80 PO (17:41)
[2024-04-23] MEDS ORDERED: LEVO-65 PO (17:41)
[2024-04-23] MEDS ORDERED: SEVE800T8 PO (17:41)
[2024-04-23] MEDS ORDERED: NEPVIT NG (17:41)
[2024-04-23] MEDS ORDERED: AMOX1TAB15 PO (17:41)
== END 2024-04-24 00:39 | disposition home or self-care (01) | DRG 871 ==
LOC: ER 17:42 → MICUSO 19:45 → 5WST 04-07 05:48 → 7EST 04-07 08:07
PROVIDERS: ADMIT Internal Medicine; ATTEND Internal Medicine
PROC: 5A1D70Z Performance of Urinary Filtration, Intermittent, Less than 6 Hours Per Day (ICD-10-PCS; principal; 2024-04-07)
PROC: 5A1D70Z Performance of Urinary Filtration, Intermittent, Less than 6 Hours Per Day (ICD-10-PCS; 2024-04-08)
PROC: 5A1D70Z Performance of Urinary Filtration, Intermittent, Less than 6 Hours Per Day (ICD-10-PCS; 2024-04-10)
PROC: 4A00X4Z Measurement of Central Nervous Electrical Activity, External Approach (ICD-10-PCS; 2024-04-13)
PROC: 5A1D70Z Performance of Urinary Filtration, Intermittent, Less than 6 Hours Per Day (ICD-10-PCS; 2024-04-13)
PROC: 5A1D70Z Performance of Urinary Filtration, Intermittent, Less than 6 Hours Per Day (ICD-10-PCS; 2024-04-16)
PROC: 5A1D70Z Performance of Urinary Filtration, Intermittent, Less than 6 Hours Per Day (ICD-10-PCS; 2024-04-20)
PROC: 5A1D70Z Performance of Urinary Filtration, Intermittent, Less than 6 Hours Per Day (ICD-10-PCS; 2024-04-22)
DX: A41.52 Sepsis due to Pseudomonas (principal); G92.8 Other toxic encephalopathy; N18.6 End stage renal disease; E87.1 Hypo-osmolality and hyponatremia; I12.0 Hypertensive chronic kidney disease with stage 5 chronic kidney disease or end stage renal disease; K92.1 Melena; E46 Unspecified protein-calorie malnutrition; R65.20 Severe sepsis without septic shock; M15.9 Polyosteoarthritis, unspecified; R73.9 Hyperglycemia, unspecified; M47.816 Spondylosis without myelopathy or radiculopathy, lumbar region; Z68.20 Body mass index [BMI] 20.0-20.9, adult; M48.061 Spinal stenosis, lumbar region without neurogenic claudication; M47.892 Other spondylosis, cervical region; E87.5 Hyperkalemia; E83.51 Hypocalcemia; E53.8 Deficiency of other specified B group vitamins; J45.909 Unspecified asthma, uncomplicated; D53.9 Nutritional anemia, unspecified; E03.8 Other specified hypothyroidism; R16.0 Hepatomegaly, not elsewhere classified; R06.6 Hiccough; R19.7 Diarrhea, unspecified; H54.61 Unqualified visual loss, right eye, normal vision left eye; M48.02 Spinal stenosis, cervical region; Z79.899 Other long term (current) drug therapy; Z99.2 Dependence on renal dialysis; Z78.1 Physical restraint status; Z82.49 Family history of ischemic heart disease and other diseases of the circulatory system; Z83.3 Family history of diabetes mellitus; Z90.49 Acquired absence of other specified parts of digestive tract
CPT/HCPCS: 36415; 71045; 72170; 74018; 74176; 80048; 80053; 80061; 80076; 80202; 80305; 81003; 82040; 82105; 82140; 82248; 82550; 82607; 82728; 82746; 82962; 83036; 83540; 83550; 83605; 83735; 83880; 84100; 84145; 84439; 84443; 84481; 84484; 85025; 85027; 86376; 87077; 87186; 90935; 92610; 93005; 93970; 95816; 97116; 97162; 97166; 97530; 99285; J0692; J0696; J0885; J1650; J2060; J2270; J2405; J2470; J2501; J2543; J2765; J3370; J3420; J3490; J0131

== ENCOUNTER 2024-05-04 02:03 | Inpatient (IN) | payer MEDICARE, MEDICAID ==
[2024-05-04] VITALS (11 sets, daily range): BP systolic 115–138; BP diastolic 54–80; PULSE 68–81; RESP 16–20; TEMP 35.61396–36.44736; O2SAT 95–100
[~2024-05-04] VITALS: Ht 152.4 cm; Wt 49.8 kg
[~2024-05-04 02:03] MED LIST changes: +AMLO10TA80 PO; +AMOX1TAB15 PO; +FOLI0.8T53 NG; +LEVO-65 PO; -OLME40TA18 MT; +SEVE800T8 PO
[2024-05-04 03:27] LABS: BASOPHILS % 1.9 % (0.0-2.0); EOSINOPHILS % 4.8 % (0.0-5.0); HEMATOCRIT. 25.2 % (42.0-52.0); HEMOGLOBIN. 8.3 g/dL (14.0-18.0); LYMPHOCYTES % 16.5 % (20.0-50.0); MEAN CORPUSCULAR HEMOGLOBIN 31.8 pg (28.0-32.0); MEAN CORPUSCULAR HGB CONC 32.8 g/dL (31.0-37.0); MEAN PLATELET VOLUME 7.2 fl (7.4-10.4); MONOCYTES % 14.1 % (2.0-8.0); NEUTROPHILS % 62.7 % (40.0-76.0); PLATELET 173 x1000/uL (130-400); RED BLOOD CELL COUNT 2.59 mill/uL (4.7-6.1); RED CELL DISTRIBUTION WIDTH 16.7 % (11.6-14.6); WHITE BLOOD COUNT 4.6 x1000/uL (4.5-11.0)
[2024-05-04 03:45] LABS: CHLORIDE 96 mEq/L (98-107); POTASSIUM 3.7 mEq/L (3.5-5.1); SODIUM 133 mEq/L (136-145)
[2024-05-04 03:46] LABS: CALCIUM 7.9 mg/dL (8.7-10.4); CARBON DIOXIDE 29 mEq/L (21-32)
[2024-05-04 03:51] LABS: GLUCOSE 79 mg/dL (70-105); UREA NITROGEN BLOOD 16 mg/dL (9-23)
[2024-05-04 03:53] LABS: ALANINE AMINOTRANSFERASE 10 IU/L (10-49); ALBUMIN 3.4 g/dL (3.2-4.8); ASPARTATE AMINOTRANSFERASE 28 IU/L (<34); BILIRUBIN DIRECT 0.2 mg/dL (<=3.0); BILIRUBIN TOTAL 0.4 mg/dL (0.1-1.0)
[2024-05-04 05:52] LABS: CREATININE 7.9 mg/dL (0.6-1.3)
[2024-05-04] MEDS ORDERED: ACETAMINOPHEN 325MG TABLET PO PRN ×2 (08:15)
[2024-05-04] MEDS ORDERED: GUAIFENESIN 200MG/10ML SUGAR FREE UDC PO PRN (08:15)
[2024-05-04] MEDS ORDERED: CLONIDINE 0.1MG TABLET PO PRN (08:15)
[2024-05-04] MEDS ORDERED: NITROGLYCERIN 0.4MG TABLET SL SL PRN (08:15)
[2024-05-04] MEDS ORDERED: ENOXAPARIN 40MG/0.4ML SYR SUBCUT SCH (08:15)
[2024-05-04] MEDS ORDERED: DOCUSATE SODIUM 100MG CAPSULE PO PRN (08:15)
[2024-05-04] MEDS ORDERED: MAGNESIUM/ALUMINUM HYDROXIDE/SIMETHICONE 30ML UDC PO PRN (08:15)
[2024-05-04] MEDS ORDERED: ONDANSETRON HCL 4MG/2ML INJ IV PRN (08:15)
[2024-05-04] MEDS ORDERED: IPRATROPIUM/ALBUTEROL 0.5-3(2.5)MG/3ML NEB NEB PRN (08:15)
[2024-05-04 09:08] LABS: IRON 47 ug/dL (65-175)
[2024-05-04 09:11] LABS: TOTAL IRON BINDING CAPACITY 212 ug/dl (250-425)
[2024-05-04 09:14] LABS: THYROID STIMULATING HORMONE 0.93 uIU/mL (0.55-4.78)
[2024-05-04 11:15] LABS: FOLIC ACID (FOLATE) SERUM 8.75 ng/mL (>5.38); VITAMIN B12 SERUM 1446 pg/mL (211-911)
[2024-05-04 11:33] LABS: PHOSPHORUS 5.6 mg/dL (2.5-4.9)
[2024-05-04 12:25] LABS: HEPATITIS B SURFACE ANTIGEN NEGATIVE (Negative)
[2024-05-04 12:46] LABS: HEPATITIS A AB IGM NEGATIVE (Negative)
[2024-05-04 12:47] LABS: HEPATITIS B CORE AB IGM NEGATIVE (Negative); HEPATITIS C AB NON REACTIVE (Neg) (Negative)
[2024-05-04] MEDS: ENOXAPARIN 30MG/0.3ML SYR SUBCUT SCH (18:24)
[2024-05-04] MEDS: DUTASTERIDE 0.5MG CAPSULE PO SCH (18:24)
[2024-05-04] MEDS: SEVELAMER CARBONATE 800 MG TABLET PO SCH (18:24)
[2024-05-04] MEDS: AMLODIPINE 10MG TABLET PO SCH (18:25)
[2024-05-04] MEDS: FAMOTIDINE 20MG TABLET PO SCH (18:25)
[2024-05-04] MEDS ORDERED: ZOLPIDEM TARTRATE 5MG TABLET PO PRN (21:00)
[2024-05-04] MEDS: TAMSULOSIN HCL 0.4MG SR CAPSULE PO SCH (21:41)
[2024-05-05] VITALS: BP 101/54; PULSE 89; RESP 20; TEMP 36.33624; O2SAT 95
[2024-05-05 04:00] VITALS: BP 95/52; PULSE 89; RESP 20; TEMP 36.33624; O2SAT 99
[2024-05-05 07:35] LABS: CHLORIDE 99 mEq/L (98-107); POTASSIUM 3.8 mEq/L (3.5-5.1); SODIUM 136 mEq/L (136-145)
[2024-05-05 07:38] LABS: CALCIUM 7.9 mg/dL (8.7-10.4); CARBON DIOXIDE 29 mEq/L (21-32)
[2024-05-05 07:43] LABS: ALANINE AMINOTRANSFERASE 8 IU/L (10-49); GLUCOSE 76 mg/dL (70-105); UREA NITROGEN BLOOD 13 mg/dL (9-23)
[2024-05-05 07:45] LABS: ALBUMIN 3.3 g/dL (3.2-4.8); ASPARTATE AMINOTRANSFERASE 26 IU/L (<34); BILIRUBIN TOTAL 0.4 mg/dL (0.1-1.0); PHOSPHORUS 5.4 mg/dL (2.5-4.9); PROTEIN TOTAL 6.6 g/dL (6.0-8.3)
[2024-05-05 08:00] VITALS: BP 107/56; PULSE 91; RESP 18; TEMP 36.6696; O2SAT 96
[2024-05-05 08:18] LABS: HEMATOCRIT. 26.5 % (42.0-52.0); HEMOGLOBIN. 8.6 g/dL (14.0-18.0); MEAN CORPUSCULAR HEMOGLOBIN 31.4 pg (28.0-32.0); MEAN CORPUSCULAR HGB CONC 32.5 g/dL (31.0-37.0); MEAN CORPUSCULAR VOLUME 96.8 fL (80.0-94.0); MEAN PLATELET VOLUME 7.7 fl (7.4-10.4); PLATELET 144 x1000/uL (130-400); RED BLOOD CELL COUNT 2.73 mill/uL (4.7-6.1); RED CELL DISTRIBUTION WIDTH 16.2 % (11.6-14.6); WHITE BLOOD COUNT 3.9 x1000/uL (4.5-11.0)
[2024-05-05 08:31] LABS: CREATININE 7.1 mg/dL (0.6-1.3)
[2024-05-05 08:49] LABS: DIFFERENTIAL COMMENT 1
[2024-05-05 12:00] VITALS: BP 103/55; PULSE 79; RESP 18; TEMP 37.28076; O2SAT 97
[2024-05-05 16:00] VITALS: BP 110/58; PULSE 86; RESP 18; TEMP 36.6696; O2SAT 96
[2024-05-05 20:00] VITALS: BP 116/60; PULSE 83; RESP 20; TEMP 36.3918; O2SAT 100
[2024-05-05 20:47] LABS: ANISOCYTOSIS 1+; PLATELET ESTIMATE NORMAL
[2024-05-06] VITALS (15 sets, daily range): BP systolic 78–154; BP diastolic 54–77; PULSE 71–109; RESP 15–20; TEMP 35.94732–36.50292; O2SAT 97–100
[2024-05-06 06:34] LABS: POTASSIUM 3.9 mEq/L (3.5-5.1)
[2024-05-06 06:35] LABS: CALCIUM 7.8 mg/dL (8.7-10.4)
[2024-05-06 07:15] LABS: BASOPHILS % 0.9 % (0.0-2.0); EOSINOPHILS % 4.8 % (0.0-5.0); HEMATOCRIT. 27.6 % (42.0-52.0); HEMOGLOBIN. 8.8 g/dL (14.0-18.0); LYMPHOCYTES % 17.7 % (20.0-50.0); MEAN CORPUSCULAR HEMOGLOBIN 31.1 pg (28.0-32.0); MEAN CORPUSCULAR HGB CONC 31.8 g/dL (31.0-37.0); MEAN CORPUSCULAR VOLUME 97.9 fL (80.0-94.0); MEAN PLATELET VOLUME 7.5 fl (7.4-10.4); MONOCYTES % 14.4 % (2.0-8.0); NEUTROPHILS % 62.2 % (40.0-76.0); PLATELET 140 x1000/uL (130-400); RED BLOOD CELL COUNT 2.82 mill/uL (4.7-6.1); RED CELL DISTRIBUTION WIDTH 16.3 % (11.6-14.6)
[2024-05-07] VITALS: BP 126/58; PULSE 87; RESP 20; TEMP 36.44736; O2SAT 99
[2024-05-07 04:00] VITALS: BP 113/58; PULSE 89; RESP 20; TEMP 37.05852; O2SAT 97
[2024-05-07 08:00] VITALS: BP 113/58; PULSE 84; RESP 19; TEMP 36.61404; O2SAT 98
[2024-05-07 12:00] VITALS: BP 109/60; PULSE 81; RESP 20; TEMP 36.61404; O2SAT 98
[2024-05-07 16:00] VITALS: BP 100/56; PULSE 82; RESP 18; TEMP 36.6696; TEMP 36.66960; O2SAT 98
[2024-05-07 19:01] VITALS: BP 100/60; PULSE 82; TEMP 98.2; O2SAT 98
== END 2024-05-07 20:10 | disposition home health service (06) | DRG 919 ==
LOC: ER 02:03 → 5WST 06:40 → 6EST 10:20
PROVIDERS: ADMIT Internal Medicine; ATTEND Internal Medicine
PROC: 5A1D70Z Performance of Urinary Filtration, Intermittent, Less than 6 Hours Per Day (ICD-10-PCS; principal; 2024-05-04)
PROC: 5A1D70Z Performance of Urinary Filtration, Intermittent, Less than 6 Hours Per Day (ICD-10-PCS; 2024-05-06)
DX: T85.638A Leakage of other specified internal prosthetic devices, implants and grafts, initial encounter (principal); N18.6 End stage renal disease; E87.1 Hypo-osmolality and hyponatremia; I12.0 Hypertensive chronic kidney disease with stage 5 chronic kidney disease or end stage renal disease; T85.520A Displacement of bile duct prosthesis, initial encounter; N40.1 Benign prostatic hyperplasia with lower urinary tract symptoms; R33.8 Other retention of urine; D63.1 Anemia in chronic kidney disease; R16.0 Hepatomegaly, not elsewhere classified; E11.22 Type 2 diabetes mellitus with diabetic chronic kidney disease; J45.909 Unspecified asthma, uncomplicated; Y73.2 Prosthetic and other implants, materials and accessory gastroenterology and urology devices associated with adverse incidents; Z99.2 Dependence on renal dialysis; Y92.89 Other specified places as the place of occurrence of the external cause
CPT/HCPCS: 36415; 74176; 80048; 80053; 80076; 82607; 82746; 83540; 83550; 83735; 84100; 84443; 85025; 86705; 86709; 87340; 90935; 93306; 93970; 97162; 97166; 99285; J1650

== ENCOUNTER 2024-05-14 14:20 | Emergency (ER) | payer MEDICARE, MEDICAID ==
[~2024-05-14] VITALS: Ht 162.6 cm; Wt 53.0 kg
[~2024-05-14 14:20] MED LIST changes: -AMOX1TAB15 PO; -LEVO-65 PO
[2024-05-14 14:31] VITALS: BP 142/53; PULSE 85; RESP 16; TEMP 98.4; O2SAT 100
== END 2024-05-14 16:01 | disposition home or self-care (01) ==
LOC: ER 14:20
DX: Z46.6 Encounter for fitting and adjustment of urinary device (principal); I12.0 Hypertensive chronic kidney disease with stage 5 chronic kidney disease or end stage renal disease; J45.909 Unspecified asthma, uncomplicated; N18.6 End stage renal disease; Z99.2 Dependence on renal dialysis; Z98.890 Other specified postprocedural states
CPT/HCPCS: 99281

== ENCOUNTER 2024-09-26 23:39 | Inpatient (IN) | payer MEDICARE, MEDICAID ==
[~2024-09-26] VITALS: Ht 154.9 cm; Wt 51.3 kg
[~2024-09-26 23:39] MED LIST changes: +CARB200T6 PO; +LEVO-65 MT
[2024-09-27 01:39] LABS: BASOPHILS % 0.7 % (0.0-2.0); CARBON DIOXIDE 34 mEq/L (21-32); CHLORIDE 98 mEq/L (98-107); EOSINOPHILS % 2.4 % (0.0-5.0); HEMATOCRIT. 24.4 % (42.0-52.0); HEMOGLOBIN. 8.1 g/dL (14.0-18.0); MEAN CORPUSCULAR HEMOGLOBIN 29.3 pg (28.0-32.0); MEAN CORPUSCULAR HGB CONC 33.3 g/dL (31.0-37.0); MEAN CORPUSCULAR VOLUME 88.1 fL (80.0-94.0); MEAN PLATELET VOLUME 6.9 fl (7.4-10.4); MONOCYTES % 8.8 % (2.0-8.0); NEUTROPHILS % 73.1 % (40.0-76.0); PLATELET 191 x1000/uL (130-400); POTASSIUM 4.8 mEq/L (3.5-5.1); RED BLOOD CELL COUNT 2.77 mill/uL (4.7-6.1); RED CELL DISTRIBUTION WIDTH 19.8 % (11.6-14.6); SODIUM 135 mEq/L (136-145); WHITE BLOOD COUNT 5.1 x1000/uL (4.5-11.0)
[2024-09-27 01:40] LABS: CALCIUM 8.1 mg/dL (8.7-10.4)
[2024-09-27 01:44] LABS: CREATININE 4.8 mg/dL (0.6-1.3)
[2024-09-27 01:45] LABS: GLUCOSE 79 mg/dL (70-105); UREA NITROGEN BLOOD 24 mg/dL (9-23)
[2024-09-27 01:46] LABS: ALANINE AMINOTRANSFERASE 9 IU/L (10-49); ALBUMIN 3.4 g/dL (3.2-4.8); ASPARTATE AMINOTRANSFERASE 22 IU/L (<34)
[2024-09-27 01:47] LABS: BILIRUBIN DIRECT 0.1 mg/dL (<=3.0); BILIRUBIN TOTAL 0.3 mg/dL (0.1-1.0); PROTEIN TOTAL 7.7 g/dL (6.0-8.3)
[2024-09-27 01:52] LABS: ETHANOL BLOOD < 10 mg/dL (<10)
[2024-09-27] MEDS ORDERED: SODIUM CHLORIDE 0.9% 500 ML IV NR (02:15)
[2024-09-27 02:27] LABS: PROTHROMBIN TIME 11.2 sec (9.6-11.0)
[2024-09-27 02:57] VITALS: BP 102/71; PULSE 70; RESP 18; TEMP 37.1408
[2024-09-27] MEDS ORDERED: NALOXONE HCL 0.4MG/ML VIAL IV PRN (03:45)
[2024-09-27] MEDS ORDERED: MORPHINE SULFATE 2 MG/ML INJ (NOT FOR IM USE) IV PRN (03:45)
[2024-09-27] MEDS ORDERED: DEXT 5%/0.45% NACL 1000ML 1,000 ML IV SCH (03:45)
[2024-09-27 04:00] VITALS: BP_SYST 129; BP_SYST 147; BP_DIAS 67; BP_DIAS 86; PULSE 69; PULSE 93; RESP 20; TEMP 36.89184; TEMP 38.28084; O2SAT 100; O2SAT 97
[2024-09-27] MEDS ORDERED: CALC667C PO (04:36)
[2024-09-27] MEDS ORDERED: [UNRECOGNIZED DRUG - CODE] (04:36)
[2024-09-27] MEDS ORDERED: ONDA-239 PO (04:36)
[2024-09-27] MEDS ORDERED: DEBROX (04:36)
[2024-09-27] MEDS ORDERED: [UNRECOGNIZED DRUG - CODE] (04:36)
[2024-09-27] MEDS ORDERED: OLME40TA18 PO (04:36)
[2024-09-27 08:09] VITALS: BP 111/63; PULSE 68; RESP 18; TEMP 36.6696; O2SAT 100
[2024-09-27] MEDS: PANTOPRAZOLE SODIUM 40 MG/VIAL IV SCH (08:53)
[2024-09-27 12:03] VITALS: BP_SYST 109; BP_SYST 111; BP_DIAS 61; BP_DIAS 63; PULSE 68; PULSE 69; RESP 18; TEMP 36.6696; TEMP 36.72516; O2SAT 100
[2024-09-27] MEDS ORDERED: HYDRALAZINE 20MG/ML VIAL IV PRN (12:45)
[2024-09-27] MEDS ORDERED: ACETAMINOPHEN 325MG TABLET PO PRN (12:45)
[2024-09-27] MEDS ORDERED: HYDROCODONE/ACETAMINOPHEN 5/325MG TABLET PO PRN (12:45)
[2024-09-27] MEDS: SEVELAMER CARBONATE 800 MG TABLET PO SCH (14:40)
[2024-09-27] MEDS: CALCIUM ACETATE 667MG CAPSULE PO SCH (14:40)
[2024-09-27] MEDS: ENOXAPARIN 30MG/0.3ML SYR SUBCUT SCH (14:41)
[2024-09-27 16:03] VITALS: BP 161/72; PULSE 78; RESP 18; TEMP 37.00296; O2SAT 99
[2024-09-27 20:00] VITALS: BP 117/60; PULSE 69; RESP 20; TEMP 37.72524; O2SAT 96
[2024-09-27] MEDS ORDERED: ZOLPIDEM TARTRATE 5MG TABLET PO PRN (21:00)
[2024-09-28] VITALS: BP 143/61; PULSE 72; RESP 20; TEMP 37.00296; O2SAT 97
[2024-09-28 04:00] VITALS: BP 152/58; PULSE 71; RESP 20; TEMP 37.28076; O2SAT 97
[2024-09-28 05:07] LABS: BASOPHILS % 0.7 % (0.0-2.0); EOSINOPHILS % 1.8 % (0.0-5.0); HEMATOCRIT. 23.8 % (42.0-52.0); HEMOGLOBIN. 7.7 g/dL (14.0-18.0); LYMPHOCYTES % 16.1 % (20.0-50.0); MEAN CORPUSCULAR HEMOGLOBIN 28.7 pg (28.0-32.0); MEAN CORPUSCULAR HGB CONC 32.5 g/dL (31.0-37.0); MEAN CORPUSCULAR VOLUME 88.2 fL (80.0-94.0); MONOCYTES % 8.2 % (2.0-8.0); NEUTROPHILS % 73.2 % (40.0-76.0); PLATELET 185 x1000/uL (130-400); RED CELL DISTRIBUTION WIDTH 19.8 % (11.6-14.6); WHITE BLOOD COUNT 5.2 x1000/uL (4.5-11.0)
[2024-09-28 05:12] LABS: POTASSIUM 4.6 mEq/L (3.5-5.1)
[2024-09-28 05:14] LABS: CALCIUM 7.5 mg/dL (8.7-10.4)
[2024-09-28 05:38] LABS: CREATININE 6.8 mg/dL (0.6-1.3)
[2024-09-28 08:14] VITALS: BP 168/75; PULSE 72; RESP 18; TEMP 36.72516; O2SAT 95
[2024-09-28] MEDS: FOLIC ACID/VITAMIN B COMP W-C TABLET NG SCH (08:35)
[2024-09-28] MEDS: CARBAMAZEPINE 200MG TABLET PO SCH (08:35)
[2024-09-28] MEDS: AMLODIPINE 10MG TABLET PO SCH (08:36)
[2024-09-28 12:07] VITALS: BP 140/64; PULSE 76; RESP 19; TEMP 37.05852; O2SAT 100
[2024-09-28 13:35] LABS: HEPATITIS B SURFACE ANTIGEN NEGATIVE (Negative)
[2024-09-28 13:56] LABS: HEPATITIS A AB IGM NEGATIVE (Negative)
[2024-09-28 13:57] LABS: HEPATITIS B CORE AB IGM NEGATIVE (Negative); HEPATITIS C AB NON REACTIVE (Neg) (Negative)
[2024-09-28 16:17] VITALS: BP 130/55; PULSE 75; RESP 19; TEMP 36.83628; O2SAT 98
[2024-09-28 20:00] VITALS: BP 136/63; PULSE 74; RESP 20; TEMP 37.11408; O2SAT 98
[2024-09-29] VITALS (14 sets, daily range): BP systolic 123–163; BP diastolic 53–78; PULSE 65–80; RESP 15–20; TEMP 36.16956–36.9474; O2SAT 98–100
[2024-09-29 06:17] LABS: POTASSIUM 4.3 mEq/L (3.5-5.1)
[2024-09-29 06:18] LABS: CALCIUM 7.7 mg/dL (8.7-10.4)
[2024-09-29 06:29] LABS: BASOPHILS % 0.4 % (0.0-2.0); EOSINOPHILS % 2.1 % (0.0-5.0); HEMATOCRIT. 25.2 % (42.0-52.0); HEMOGLOBIN. 8.4 g/dL (14.0-18.0); LYMPHOCYTES % 12.1 % (20.0-50.0); MEAN CORPUSCULAR HEMOGLOBIN 29.6 pg (28.0-32.0); MEAN CORPUSCULAR HGB CONC 33.5 g/dL (31.0-37.0); MEAN CORPUSCULAR VOLUME 88.2 fL (80.0-94.0); MEAN PLATELET VOLUME 7.1 fl (7.4-10.4); MONOCYTES % 7.1 % (2.0-8.0); NEUTROPHILS % 78.3 % (40.0-76.0); PLATELET 179 x1000/uL (130-400); RED BLOOD CELL COUNT 2.86 mill/uL (4.7-6.1); RED CELL DISTRIBUTION WIDTH 19.8 % (11.6-14.6); WHITE BLOOD COUNT 5.1 x1000/uL (4.5-11.0)
[2024-09-29] MEDS: ONDANSETRON HCL 4MG/2ML INJ IV PRN (12:59)
[2024-09-29 21:30] LABS: ALBUMIN 3.1 g/dL (3.2-4.8); BILIRUBIN DIRECT 0.1 mg/dL (<=3.0)
[2024-09-29 21:31] LABS: ALANINE AMINOTRANSFERASE < 7 IU/L (10-49); ASPARTATE AMINOTRANSFERASE 17 IU/L (<34); BILIRUBIN TOTAL 0.3 mg/dL (0.1-1.0)
[2024-09-30] VITALS (11 sets, daily range): BP systolic 126–174; BP diastolic 57–77; PULSE 65–86; RESP 18–20; TEMP 36.3–36.7; O2SAT 99–100
[2024-09-30 06:44] LABS: BASOPHILS % 0.5 % (0.0-2.0); EOSINOPHILS % 2.2 % (0.0-5.0); HEMATOCRIT. 24.2 % (42.0-52.0); LYMPHOCYTES % 13.8 % (20.0-50.0); MEAN CORPUSCULAR HEMOGLOBIN 29.2 pg (28.0-32.0); MEAN CORPUSCULAR HGB CONC 32.9 g/dL (31.0-37.0); MEAN CORPUSCULAR VOLUME 88.6 fL (80.0-94.0); MEAN PLATELET VOLUME 7.2 fl (7.4-10.4); MONOCYTES % 8.5 % (2.0-8.0); PLATELET 170 x1000/uL (130-400); RED BLOOD CELL COUNT 2.73 mill/uL (4.7-6.1); RED CELL DISTRIBUTION WIDTH 20.2 % (11.6-14.6); WHITE BLOOD COUNT 5.7 x1000/uL (4.5-11.0)
[2024-09-30 07:01] LABS: POTASSIUM 4.5 mEq/L (3.5-5.1)
[2024-09-30 07:02] LABS: CALCIUM 7.6 mg/dL (8.7-10.4)
[2024-09-30 07:56] LABS: CREATININE 7.2 mg/dL (0.6-1.3)
[2024-10-01] VITALS: BP 148/66; PULSE 74; RESP 18; TEMP 36.9; O2SAT 98
[2024-10-01 04:00] VITALS: BP 104/70; PULSE 79; RESP 18; TEMP 36.8; O2SAT 97
[2024-10-01 08:37] LABS: BASOPHILS % 0.4 % (0.0-2.0); EOSINOPHILS % 1.4 % (0.0-5.0); HEMATOCRIT. 26.5 % (42.0-52.0); HEMOGLOBIN. 8.5 g/dL (14.0-18.0); LYMPHOCYTES % 15.1 % (20.0-50.0); MEAN CORPUSCULAR HGB CONC 32.1 g/dL (31.0-37.0); MEAN CORPUSCULAR VOLUME 90.3 fL (80.0-94.0); MEAN PLATELET VOLUME 6.8 fl (7.4-10.4); MONOCYTES % 7.1 % (2.0-8.0); PLATELET 170 x1000/uL (130-400); RED BLOOD CELL COUNT 2.94 mill/uL (4.7-6.1); RED CELL DISTRIBUTION WIDTH 19.9 % (11.6-14.6); WHITE BLOOD COUNT 4.9 x1000/uL (4.5-11.0)
[2024-10-01 08:38] LABS: CARBON DIOXIDE 28 mEq/L (21-32); CHLORIDE 100 mEq/L (98-107); POTASSIUM 4.6 mEq/L (3.5-5.1); SODIUM 136 mEq/L (136-145)
[2024-10-01 08:39] LABS: CALCIUM 7.8 mg/dL (8.7-10.4)
[2024-10-01 08:41] VITALS: BP 161/71; PULSE 74; RESP 18; TEMP 36.6; O2SAT 98
[2024-10-01 08:44] LABS: GLUCOSE 86 mg/dL (70-105); UREA NITROGEN BLOOD 24 mg/dL (9-23)
[2024-10-01 08:45] LABS: PROTHROMBIN TIME 11.3 sec (9.6-11.0)
[2024-10-01 08:46] LABS: PHOSPHORUS 1.7 mg/dL (2.5-4.9)
[2024-10-01] MEDS ORDERED: IOHEXOL-300 50 ML BOTTLE IV ONE (10:32)
[2024-10-01] MEDS ORDERED: LIDOCAINE HCL 1% 10 MG/ML 10ML VIAL ONE (11:01)
[2024-10-01 12:00] VITALS: BP 102/66; PULSE 83; RESP 18; TEMP 37.1; O2SAT 99
[2024-10-01 16:00] VITALS: BP 143/64; PULSE 82; RESP 20; TEMP 36.5; O2SAT 97
[2024-10-01 20:00] VITALS: BP 122/63; PULSE 83; RESP 18; TEMP 36.8; O2SAT 99
[2024-10-02] VITALS (11 sets, daily range): BP systolic 112–160; BP diastolic 55–74; PULSE 60–77; RESP 17–20; TEMP 36.114–36.6696; O2SAT 97–100
[2024-10-02] MEDS: CLONIDINE 0.1MG TABLET PO PRN (04:15)
[2024-10-02] MEDS: PIPERACILLIN/TAZO 3.375G/50ML 50 ML IV SCH (13:27)
[2024-10-02] MEDS ORDERED: LEVO250T74 PO (17:53)
== END 2024-10-02 19:43 | disposition home or self-care (01) | DRG 919 ==
LOC: ER 09-27 00:13 → 7WST 09-27 01:45 → EDBEDREQTM 09-27 01:56 → EDBEDREQ 09-27 01:56 → EDBEDREQDT 09-27 01:56
PROVIDERS: ADMIT Internal Medicine; ATTEND Internal Medicine
PROC: 5A1D70Z Performance of Urinary Filtration, Intermittent, Less than 6 Hours Per Day (ICD-10-PCS; 2024-09-29)
PROC: 5A1D70Z Performance of Urinary Filtration, Intermittent, Less than 6 Hours Per Day (ICD-10-PCS; 2024-09-30)
PROC: 0F2BX0Z Change Drainage Device in Hepatobiliary Duct, External Approach (ICD-10-PCS; principal; 2024-10-01)
PROC: BF101ZZ Fluoroscopy of Bile Ducts using Low Osmolar Contrast (ICD-10-PCS; 2024-10-01)
PROC: 5A1D70Z Performance of Urinary Filtration, Intermittent, Less than 6 Hours Per Day (ICD-10-PCS; 2024-10-02)
DX: T85.590A Other mechanical complication of bile duct prosthesis, initial encounter (principal); K83.1 Obstruction of bile duct; N18.6 End stage renal disease; I12.0 Hypertensive chronic kidney disease with stage 5 chronic kidney disease or end stage renal disease; Z99.2 Dependence on renal dialysis; N40.0 Benign prostatic hyperplasia without lower urinary tract symptoms; J44.89 Other specified chronic obstructive pulmonary disease; E78.5 Hyperlipidemia, unspecified; R13.10 Dysphagia, unspecified; Y83.8 Other surgical procedures as the cause of abnormal reaction of the patient, or of later complication, without mention of misadventure at the time of the procedure; Y92.89 Other specified places as the place of occurrence of the external cause
CPT/HCPCS: 36415; 47531; 47536; 74176; 80048; 80076; 80320; 82962; 83735; 84100; 84145; 85025; 86705; 86709; 87077; 87186; 87340; 90935; 93970; 99285; C1725; C1729; C1760; C1769; J1650; J2003; J2405; J2470; J2543; Q9967; G0480

== ENCOUNTER 2025-02-15 09:05 | Emergency (ER) | payer MEDICARE, MEDICAID ==
[~2025-02-15] VITALS: Ht 165.1 cm; Wt 66.0 kg
[~2025-02-15 09:05] MED LIST changes: +CALC667C PO; +DEBROX; -FOLI0.8T53 NG; -LEVO-65 MT; +LEVO250T74 PO; +OLME40TA18 PO; +ONDA-239 PO; +[UNRECOGNIZED DRUG - CODE]
[2025-02-15 09:19] VITALS: O2SAT 98
[2025-02-15 09:25] VITALS: BP 171/80; PULSE 78; RESP 18; TEMP 36.9; O2SAT 99
[2025-02-15 10:23] LABS: BASOPHILS % 0.8 % (0.0-2.0); EOSINOPHILS % 1.2 % (0.0-5.0); HEMATOCRIT. 29.1 % (42.0-52.0); HEMOGLOBIN. 9.5 g/dL (14.0-18.0); LYMPHOCYTES % 11.8 % (20.0-50.0); MEAN CORPUSCULAR HEMOGLOBIN 28.9 pg (28.0-32.0); MEAN CORPUSCULAR HGB CONC 32.6 g/dL (31.0-37.0); MEAN CORPUSCULAR VOLUME 88.5 fL (80.0-94.0); MEAN PLATELET VOLUME 7.5 fl (7.4-10.4); MONOCYTES % 9.4 % (2.0-8.0); NEUTROPHILS % 76.8 % (40.0-76.0); PLATELET 147 x1000/uL (130-400); RED BLOOD CELL COUNT 3.28 mill/uL (4.7-6.1); RED CELL DISTRIBUTION WIDTH 19.8 % (11.6-14.6); WHITE BLOOD COUNT 5.1 x1000/uL (4.5-11.0)
[2025-02-15 10:30] LABS: CHLORIDE 95 mEq/L (98-107); POTASSIUM 4.4 mEq/L (3.5-5.1); SODIUM 134 mEq/L (136-145)
[2025-02-15 10:31] LABS: CALCIUM 7.4 mg/dL (8.7-10.4); CARBON DIOXIDE 30 mEq/L (21-32)
[2025-02-15 10:36] LABS: GLUCOSE 94 mg/dL (70-105); UREA NITROGEN BLOOD 37 mg/dL (9-23)
[2025-02-15 10:38] LABS: ALANINE AMINOTRANSFERASE 26 IU/L (10-49); ALBUMIN 3.4 g/dL (3.2-4.8); ASPARTATE AMINOTRANSFERASE 36 IU/L (<34); BILIRUBIN TOTAL 0.3 mg/dL (0.1-1.0); PROTEIN TOTAL 8.3 g/dL (6.0-8.3)
[2025-02-15 10:47] LABS: CREATININE 7.7 mg/dL (0.6-1.3)
== END 2025-02-15 11:42 | disposition home or self-care (01) ==
LOC: ER 09:05
DX: T85.520A Displacement of bile duct prosthesis, initial encounter (principal); I12.0 Hypertensive chronic kidney disease with stage 5 chronic kidney disease or end stage renal disease; N18.6 End stage renal disease; J45.909 Unspecified asthma, uncomplicated; Z79.899 Other long term (current) drug therapy; Z99.2 Dependence on renal dialysis; Z98.890 Other specified postprocedural states; Y92.89 Other specified places as the place of occurrence of the external cause
CPT/HCPCS: 36415; 80053; 85025; 99283

== ENCOUNTER 2025-03-19 09:40 | Inpatient (IN) | payer MEDICARE, MEDICAID ==
[~2025-03-19] VITALS: Ht 162.6 cm; Wt 49.5 kg
[~2025-03-19 09:40] MED LIST changes: -ONDA-239 PO
[2025-03-19] MEDS: ONDANSETRON HCL 4MG/2ML INJ IV STA (10:14)
[2025-03-19] MEDS: MORPHINE SULFATE 4 MG/ML INJ (FOR IV/IM USE) IV STA (10:15)
[2025-03-19 10:26] LABS: BASOPHILS % 0.5 % (0.0-2.0); EOSINOPHILS % 0.1 % (0.0-5.0); HEMATOCRIT. 31.7 % (42.0-52.0); HEMOGLOBIN. 10.3 g/dL (14.0-18.0); LYMPHOCYTES % 11.8 % (20.0-50.0); MEAN PLATELET VOLUME 8.0 fl (7.4-10.4); MONOCYTES % 8.6 % (2.0-8.0); NEUTROPHILS % 79.0 % (40.0-76.0); PLATELET 116 x1000/uL (130-400); RED BLOOD CELL COUNT 3.44 mill/uL (4.7-6.1); RED CELL DISTRIBUTION WIDTH 21.2 % (11.6-14.6)
[2025-03-19 10:40] LABS: UREA NITROGEN BLOOD 34 mg/dL (9-23)
[2025-03-19 10:41] LABS: ASPARTATE AMINOTRANSFERASE 32 IU/L (<34); TROPONIN I HIGH SENSITIVITY 36 ng/L (3.0-53)
[2025-03-19 10:42] LABS: BILIRUBIN DIRECT 0.4 mg/dL (<=3.0); BILIRUBIN TOTAL 0.8 mg/dL (0.1-1.0); PROTEIN TOTAL 7.6 g/dL (6.0-8.3)
[2025-03-19 10:43] LABS: INR 1.1
[2025-03-19 10:53] LABS: CREATININE 7.2 mg/dL (0.6-1.3)
[2025-03-19 13:19] LABS: TROPONIN I HIGH SENSITIVITY 33 ng/L (3.0-53)
[2025-03-19] MEDS ORDERED: IPRATROPIUM/ALBUTEROL 0.5-3(2.5)MG/3ML NEB HHN PRN (13:45)
[2025-03-19] MEDS ORDERED: ACETAMINOPHEN 325MG TABLET PO PRN ×2 (13:45)
[2025-03-19] MEDS ORDERED: DOCUSATE SODIUM 100MG CAPSULE PO PRN (13:45)
[2025-03-19] MEDS ORDERED: ONDANSETRON HCL 4MG/2ML INJ IV PRN (13:45)
[2025-03-19] MEDS ORDERED: CLONIDINE 0.1MG TABLET PO PRN (13:45)
[2025-03-19 15:15] VITALS: BP 152/70; PULSE 71; RESP 18; TEMP 36.2; O2SAT 97
[2025-03-19 16:00] VITALS: BP 165/79; PULSE 72; RESP 16; TEMP 36.5; O2SAT 97
[2025-03-19 16:07] VITALS: BP 152/70; PULSE 71; RESP 18; TEMP 36.2512
[2025-03-19 17:01] LABS: HEPATITIS A AB IGM NEGATIVE (Negative)
[2025-03-19 17:02] LABS: HEPATITIS B CORE AB IGM NEGATIVE (Negative); HEPATITIS C AB NON REACTIVE (Neg) (Negative)
[2025-03-19] MEDS: PIPERACILLIN/TAZO 3.375G/50ML 50 ML IV SCH (19:43)
[2025-03-19] MEDS: CALCIUM ACETATE 667MG CAPSULE PO SCH (19:44)
[2025-03-19] MEDS: FOLIC ACID/VITAMIN B COMP W-C TABLET PO SCH (19:44)
[2025-03-19] MEDS: HYDRALAZINE HCL 25MG TABLET PO SCH (19:44)
[2025-03-19 20:00] VITALS: BP 150/76; PULSE 72; RESP 16; TEMP 36.9; O2SAT 98
[2025-03-20] VITALS (12 sets, daily range): BP systolic 123–171; BP diastolic 60–82; PULSE 65–92; RESP 16–18; TEMP 35.78064–36.9; O2SAT 96–98
[2025-03-20] MEDS: PANTOPRAZOLE SODIUM 40 MG/VIAL IV SCH (10:55)
[2025-03-20] MEDS: FUROSEMIDE 40MG/4ML VIAL IVP SCH (10:55)
[2025-03-20] MEDS: PIPERACILLIN/TAZO 3.375G/50ML 50 ML IV SCH (10:55)
[2025-03-20] MEDS: TAMSULOSIN HCL 0.4MG SR CAPSULE PO SCH (10:56)
[2025-03-20 11:07] LABS: INR 1.2
[2025-03-20 11:08] LABS: HEMATOCRIT. 35.7 % (42.0-52.0); HEMOGLOBIN. 11.5 g/dL (14.0-18.0); RED BLOOD CELL COUNT 3.88 mill/uL (4.7-6.1); RED CELL DISTRIBUTION WIDTH 21.4 % (11.6-14.6)
[2025-03-20 11:18] LABS: UREA NITROGEN BLOOD 17 mg/dL (9-23)
[2025-03-20 11:19] LABS: ASPARTATE AMINOTRANSFERASE 26 IU/L (<34); BILIRUBIN DIRECT 0.5 mg/dL (<=3.0); BILIRUBIN TOTAL 1.0 mg/dL (0.1-1.0); PHOSPHORUS 2.3 mg/dL (2.5-4.9)
[2025-03-20 11:20] LABS: PROTEIN TOTAL 8.2 g/dL (6.0-8.3)
[2025-03-20 11:27] LABS: CREATININE 4.1 mg/dL (0.6-1.3)
[2025-03-20 12:39] LABS: BAND% 22.0 % (1.0-6.0); LYMPHOCYTES % MANUAL 5.0 % (20.0-50.0); MONOCYTES % MANUAL 2.0 % (2.0-8.0); NEUTROPHILS % MANUAL 71.0 % (45.0-75.0)
[2025-03-20 12:41] LABS: PLATELET ESTIMATE SLIGHTLY DECREASED
[2025-03-20 13:23] LABS: CLARITY URINE CLEAR (CLEAR); COLOR URINE YELLOW (YELLOW); GLUCOSE URINE NEGATIVE (NEGATIVE); KETONES URINE NEGATIVE (NEGATIVE); LEUKOCYTE ESTERASE URINE TRACE (NEGATIVE); NITRITE URINE NEGATIVE (NEGATIVE); OCCULT BLOOD URINE NEGATIVE (NEGATIVE); PH URINE >=9.0 (4.5-8.0); PROTEIN URINE 3+ (NEGATIVE); SPECIFIC GRAVITY URINE 1.011 (1.005-1.030); UROBILINOGEN URINE 0.2 E.U./dL (0.2-1.0)
[2025-03-20 13:52] LABS: *AMPHETAMINES SCREEN URINE NEGATIVE (NEGATIVE); *BENZODIAZEPINES SCREEN URINE NEGATIVE (NEGATIVE)
[2025-03-20 13:53] LABS: *BARBITURATES SCREEN URINE NEGATIVE (NEGATIVE); *COCAINE SCREEN URINE NEGATIVE (NEGATIVE); CANNABINOID URINE SCREEN NEGATIVE (NEGATIVE); ECSTASY MDMA SCREEN URINE NEGATIVE (NEGATIVE); METHADONE URINE SCREEN NEGATIVE (NEGATIVE); OPIATES URINE SCREEN PRESUMPTIVE POSITIVE (NEGATIVE); PHENCYCLIDINE URINE SCREEN NEGATIVE (NEGATIVE)
[2025-03-20 14:08] LABS: SQUAMOUS EPITHELIAL CELL URINE RARE /lpf (RARE/1+)
[2025-03-20 14:09] LABS: BACTERIA URINE TRACE; RBC URINE 0-2 /hpf (0-2)
[2025-03-20 14:10] LABS: WBC URINE 0-2 /hpf (0-2)
== END 2025-03-20 16:00 | disposition home or self-care (01) | DRG 391 ==
LOC: ER 09:40 → 6WST 12:23 → EDBEDREQTM 13:35 → EDBEDREQ 13:35 → ENRESERV 14:04
PROVIDERS: ADMIT Internal Medicine; ATTEND Internal Medicine
PROC: 5A1D70Z Performance of Urinary Filtration, Intermittent, Less than 6 Hours Per Day (ICD-10-PCS; principal; 2025-03-20)
DX: K52.9 Noninfective gastroenteritis and colitis, unspecified (principal); N18.6 End stage renal disease; E87.1 Hypo-osmolality and hyponatremia; I12.0 Hypertensive chronic kidney disease with stage 5 chronic kidney disease or end stage renal disease; D64.9 Anemia, unspecified; D69.6 Thrombocytopenia, unspecified; E11.22 Type 2 diabetes mellitus with diabetic chronic kidney disease; J45.909 Unspecified asthma, uncomplicated; N40.0 Benign prostatic hyperplasia without lower urinary tract symptoms; Z79.899 Other long term (current) drug therapy; Z99.2 Dependence on renal dialysis
CPT/HCPCS: 36415; 71045; 74176; 76700; 80048; 80076; 80305; 81003; 82550; 82962; 83605; 83735; 84100; 84145; 84484; 85025; 86705; 86709; 87340; 90935; 93970; 94640; 99291; A4606; J1938; J2270; J2405; J2470; J2543

== ENCOUNTER 2025-05-10 21:05 | Inpatient (IN) | payer MEDICARE, OTHER ==
[~2025-05-10] VITALS: Ht 162.6 cm; Wt 44.1 kg
[~2025-05-10 21:05] MED LIST changes: +CARB-214 PO; +CARB15DR20; -CARB200T6 PO; -DEBROX; -LEVO250T74 PO; -OLME40TA18 PO; -[UNRECOGNIZED DRUG - CODE]
[2025-05-10 21:10] VITALS: O2SAT 98
[2025-05-10 22:30] LABS: BASOPHILS % 0.9 % (0.0-2.0); EOSINOPHILS % 1.1 % (0.0-5.0); HEMATOCRIT. 34.6 % (42.0-52.0); HEMOGLOBIN. 11.1 g/dL (14.0-18.0); LYMPHOCYTES % 8.7 % (20.0-50.0); MEAN PLATELET VOLUME 7.7 fl (7.4-10.4); MONOCYTES % 7.4 % (2.0-8.0); NEUTROPHILS % 81.9 % (40.0-76.0); PLATELET 131 x1000/uL (130-400); RED BLOOD CELL COUNT 3.87 mill/uL (4.7-6.1); RED CELL DISTRIBUTION WIDTH 19.0 % (11.6-14.6)
[2025-05-10 22:44] LABS: CREATININE 3.9 mg/dL (0.6-1.3); UREA NITROGEN BLOOD 14 mg/dL (9-23)
[2025-05-10 22:46] LABS: ASPARTATE AMINOTRANSFERASE 37 IU/L (<34); BILIRUBIN DIRECT 0.5 mg/dL (<=3.0); BILIRUBIN TOTAL 0.8 mg/dL (0.1-1.0)
[2025-05-10 22:47] LABS: PROTEIN TOTAL 7.5 g/dL (6.0-8.3)
[2025-05-10] MEDS ORDERED: ACETAMINOPHEN 325MG TABLET PO PRN (23:30)
[2025-05-10] MEDS ORDERED: ONDANSETRON HCL 4MG/2ML INJ IV PRN (23:30)
[2025-05-11] VITALS (9 sets, daily range): BP systolic 120–163; BP diastolic 64–77; PULSE 76–86; RESP 17–24; TEMP 36.3–37.2; O2SAT 98–100
[2025-05-11] MEDS: ACETAMINOPHEN 325MG TABLET PO PRN (04:58)
[2025-05-11] MEDS ORDERED: ENOXAPARIN 30MG/0.3ML SYR SUBCUT SCH (09:00)
[2025-05-11] MEDS ORDERED: LIDOCAINE HCL 1% 10 MG/ML 10ML VIAL ONE (10:42)
[2025-05-11] MEDS ORDERED: IODIXANOL 320MG/ML 100 ML BOTTLE IV ONE (10:43)
[2025-05-11] MEDS: SEVELAMER CARBONATE 800 MG TABLET PO SCH (13:20)
[2025-05-11] MEDS: LOSARTAN 50 MG TABLET PO SCH (13:32)
[2025-05-11] MEDS: AMLODIPINE 10MG TABLET PO SCH (13:33)
[2025-05-11] MEDS ORDERED: IOHEXOL-300 100 ML BOTTLE ONE (15:25)
[2025-05-11] MEDS: DOXAZOSIN MESYLATE 2MG TABLET PO SCH (20:23)
[2025-05-12] VITALS (14 sets, daily range): BP systolic 92–128; BP diastolic 51–73; PULSE 70–102; RESP 14–18; TEMP 36.1–36.50292; O2SAT 97–100
[2025-05-12 13:05] LABS: BASOPHILS % 0.4 % (0.0-2.0); EOSINOPHILS % 0.4 % (0.0-5.0); HEMATOCRIT. 35.9 % (42.0-52.0); HEMOGLOBIN. 11.2 g/dL (14.0-18.0); LYMPHOCYTES % 7.3 % (20.0-50.0); MEAN PLATELET VOLUME 8.2 fl (7.4-10.4); MONOCYTES % 6.9 % (2.0-8.0); NEUTROPHILS % 85.0 % (40.0-76.0); PLATELET 81 x1000/uL (130-400); RED BLOOD CELL COUNT 4.01 mill/uL (4.7-6.1); RED CELL DISTRIBUTION WIDTH 19.5 % (11.6-14.6)
[2025-05-12 13:23] LABS: CREATININE 4.3 mg/dL (0.6-1.3)
[2025-05-12 13:24] LABS: UREA NITROGEN BLOOD 13 mg/dL (9-23)
[2025-05-12 13:26] LABS: PHOSPHORUS 2.7 mg/dL (2.5-4.9)
== END 2025-05-12 17:30 | disposition home or self-care (01) | DRG 919 ==
LOC: ER 21:05 → 6WST 22:49 → EDBEDREQTM 22:52 → EDBEDREQSVC 22:52 → EDBEDREQ 22:52 → EDBEDREQSVC 05-11 03:23 → ENRESERV 05-11 03:52
PROVIDERS: ADMIT Student in an Organized Health Care Education/Training Program; ATTEND Student in an Organized Health Care Education/Training Program
PROC: 0F2BX0Z Change Drainage Device in Hepatobiliary Duct, External Approach (ICD-10-PCS; principal; 2025-05-11)
PROC: BF101ZZ Fluoroscopy of Bile Ducts using Low Osmolar Contrast (ICD-10-PCS; 2025-05-11)
PROC: 5A1D70Z Performance of Urinary Filtration, Intermittent, Less than 6 Hours Per Day (ICD-10-PCS; 2025-05-12)
DX: T85.510A Breakdown (mechanical) of bile duct prosthesis, initial encounter (principal); N18.6 End stage renal disease; C78.7 Secondary malignant neoplasm of liver and intrahepatic bile duct; K80.21 Calculus of gallbladder without cholecystitis with obstruction; R18.8 Other ascites; R64 Cachexia; Z68.1 Body mass index [BMI] 19.9 or less, adult; I12.0 Hypertensive chronic kidney disease with stage 5 chronic kidney disease or end stage renal disease; T85.520A Displacement of bile duct prosthesis, initial encounter; Z99.2 Dependence on renal dialysis; E83.51 Hypocalcemia; D64.9 Anemia, unspecified; Y73.2 Prosthetic and other implants, materials and accessory gastroenterology and urology devices associated with adverse incidents; N40.0 Benign prostatic hyperplasia without lower urinary tract symptoms; Z85.05 Personal history of malignant neoplasm of liver; R16.0 Hepatomegaly, not elsewhere classified; Y83.8 Other surgical procedures as the cause of abnormal reaction of the patient, or of later complication, without mention of misadventure at the time of the procedure; Y92.89 Other specified places as the place of occurrence of the external cause
CPT/HCPCS: 36415; 47531; 47533; 74177; 76700; 80048; 80076; 82550; 83735; 84100; 85025; 86850; 86900; 90935; 99285; C1729; C1769; J2003; Q9967